=== PATIENT | female | born 1975 | race Caucasian/White ===

== ENCOUNTER → 2016-04-30 | Outpatient (CLI) | payer OTHER | LOC: RAD 17:42 | PROVIDERS: ATTEND Physician Assistant | DX: J45.21 Mild intermittent asthma with (acute) exacerbation (principal) | CPT/HCPCS: 71020 ==

== ENCOUNTER → 2017-09-08 | Outpatient (CLI) | payer OTHER | LOC: WI 08:10 | PROVIDERS: ATTEND Physician Assistant | DX: Z12.31 Encounter for screening mammogram for malignant neoplasm of breast (principal) | CPT/HCPCS: 77063; 77067 ==

== ENCOUNTER → 2018-02-07 | Outpatient (CLI) | payer OTHER ==
--- NOTE | 2018-02-07 09:17 | RADIOLOGY REPORT (SQ) ---
EXAM DESCRIPTION: U/S ABDOMEN COMPLETE W/O DOP COMPLETED DATE/TIME: 02/07/2018 8:13 am REASON FOR STUDY: N/V (R11.2) R11.2 NAUSEA WITH VOMITING, UNSPECIFIED . History of previous gastri c bypass. COMPARISON: CT abdomen and pelvis 06/12/2013. TECHNIQUE: Dynamic and static grayscale images acquired of the abdomen and recorded on PACS. Additio nal selected color Doppler and spectral images recorded. LIMITATIONS: None. FINDINGS: PANCREAS: No masses. Visualized pancreatic duct normal caliber. LIVER: The liver demonstrates increased echogenicity consistent with fatty infiltration. The liver i s prominent in size measuring 20.7 cm. LIVER VASCULATURE: Normal directional flow of the main portal vein and hepatic veins. GALLBLADDER: Surgically absent by history. INTRAHEPATIC DUCTS AND COMMON DUCT: CBD measures 0.7 cm. Intrahepatic ducts normal caliber. No filli ng defects. INFERIOR VENA CAVA: Normal flow. AORTA: No aneurysm. The proximal abdominal aorta measures 1.9 cm in AP diameter and the mid abdomina l aorta measures 2.4 cm in AP diameter. RIGHT KIDNEY: The right kidney measures 10.1 cm in length demonstrating normal echogenicity. Dopple r flow is noticed. No hydronephrosis. LEFT KIDNEY: The left kidney measures 12.8 cm demonstrating normal echogenicity. No hydronephrosis normal Doppler flow. SPLEEN: The spleen is normal measuring 11.5 cm. OTHER: No ascites. In the mid abdomen there is a cystic mass with irregular margins without Doppler flow measuring 5.8 x 5.6 x 3.2 cm. Follow-up with CT abdomen and pelvis with contrast could be uses further evaluation. IMPRESSION: There is a fluid filled structure mid abdomen at the midline. The possibility of findin gs related to previous gastric bypass would be a consideration. Follow-up with CT with intravenous a nd oral contrast could be obtained for further evaluation. COMMENT: The findings were discussed with the sleep lab technologist. TECHNICAL DOCUMENTATION: JOB ID: [id number] SC-[id number] 2010 [employer]- All Rights Reserved Reading location - IP/workstation name: [email or web address]
== END ==
LOC: RAD 07:24
PROVIDERS: ATTEND Internal Medicine Gastroenterology
DX: R11.2 Nausea with vomiting, unspecified (principal)
CPT/HCPCS: 76700

== ENCOUNTER 2018-02-19 20:38 | Emergency (ER) | payer OTHER ==
[2018-02-19 20:53] VITALS: BP 156/89
[2018-02-19] MEDS ORDERED: IPRATROPIUM/ALBUTEROL 0.5-2.5 MG/3 ML AMPUL NEB ONE (22:27)
[2018-02-19] MEDS ORDERED: PREDNISONE 20 MG TABLET PO ONE (22:28)
[2018-02-19] MEDS ORDERED: DOXYCYCLINE HYCLATE 100 MG TABLET PO ONE (22:30)
[2018-02-19] MEDS ORDERED: GUAIFENESIN/CODEINE PHOS 100-10 MG/ 5 ML UDC PO ONE (22:31)
--- NOTE | 2018-02-19 22:35 | ER Document Report ---
ED General - General Chief Complaint: Chest Pain Stated Complaint: FLU LIKE SYMPTOMS Time Seen by Provider: 02/19/18 22:10 Mode of Arrival: Ambulatory Information source: Patient, [facility] Records Notes: 42-year-old female with asthma, fibromyalgia, arthritis presents with complaint of cough that started 1 week prior to arrival. She describes it as constant, productive and associated with chest pain. Patient complaining of shortness of breath despite using her albuterol at home. Patient admits to associated shortness sore throat, fever of 101. Patient has had sick contacts at home with children with similar symptoms. She denies recent hospitalization. She has been taking [id number] cough medicine without relief. TRAVEL OUTSIDE OF THE [place] IN LAST 30 DAYS: No - HPI Onset: Other Onset/Duration: Gradual, Persistent Associated symptoms: Chest pain - With coughing only, Productive cough, Fever, Hoarseness, Shortness of breath, Sore throat Exacerbated by: Coughing Relieved by: Denies Similar symptoms previously: Yes Recently seen / treated by doctor: Yes - Related Data Allergies/Adverse Reactions: Sulfa (Sulfonamide Antibiotics) Allergy (Unknown, Verified 05/30/13 12:22) hydromorphone HCl [From Dilaudid] Allergy (Verified 05/30/13 12:22) Hallucinations Past Medical History - General Information source: Patient, Relative, [facility] Records - Social History Smoking Status: Current Every Day Smoker Cigarette use (# per day): Yes - 10 Smoking Education Provided: Yes - Smoking cessation counseling was provided for 4 minutes at the bedside Frequency of alcohol use: None Drug Abuse: None Lives with: Family Family History: Reviewed & Not Pertinent - Past Medical History Cardiac Medical History: Denies: Hx Coronary Artery Disease, Hx Heart Attack, Hx Hypertension Pulmonary Medical History: Reports: Hx Bronchitis, Hx Pneumonia Denies: Hx Asthma, Hx COPD, Hx Tuberculosis Neurological Medical History: Reports: Hx Seizures - one time 2003, NO CURRENT MEDS. Denies: Hx Cerebrovascular Accident GI Medical History: Reports: Hx Gastroesophageal Reflux Disease Musculoskeletal Medical History: Reports Hx Arthritis, Reports Hx Fibromyalgia, Denies Hx Multiple Sclerosis, Denies Hx Muscular Dystrophy Skin Medical History: Reports Hx MRSA, Reports Hx Psoriasis Psychiatric Medical History: Reports: Hx Anxiety, Hx Bipolar Disorder, Hx Depression, Hx Post Traumatic Stress Disorder Denies: Hx Dementia, Hx Schizophrenia Traumatic Medical History: Denies: Hx Fractures Past Surgical History: Reports: Hx Abdominal Surgery - hernia repair, endoscopy , Hx Appendectomy, Hx Section - 2, Hx Cholecystectomy, Hx Gastric Bypass Surgery, Hx Tonsillectomy, Hx Tubal Ligation. Denies: Hx Bowel Surgery, Hx Coronary Artery Bypass Graft, Hx Herniorrhaphy, Hx Hysterectomy, Hx Mastectomy, Hx Pacemaker - Immunizations Immunizations up to date: No Hx Diphtheria, Pertussis, Tetanus Vaccination: Yes Review of Systems - Review of Systems Constitutional: Fever, Malaise EENT: Nose congestion, Nose discharge, Throat pain. denies: Eye discharge Cardiovascular: Chest pain - With coughing only Respiratory: Cough, Short of breath, Wheezing Gastrointestinal: denies: Abdominal pain, Nausea, Vomiting Genitourinary: denies: Dysuria, Flank pain Female Genitourinary: No symptoms reported Musculoskeletal: Muscle pain. denies: Back pain Hematologic/Lymphatic: Swollen glands Neurological/Psychological: denies: Headaches -: Yes All other systems reviewed and negative Physical Exam - Vital signs Vitals: Temp Pulse Resp BP Pulse Ox 98.9 F 88 20 156/89 H 94 02/19/18 20:51 02/19/18 20:51 02/19/18 20:51 02/19/18 20:51 02/19/18 20:51 Interpretation: Hypertensive. No: Febrile - Notes Notes: PHYSICAL EXAMINATION: GENERAL: Well-appearing, well-nourished and in no acute distress. HEAD: Atraumatic, normocephalic. EYES: Pupils equal round and reactive to light, extraocular movements intact, conjunctiva are normal. ENT: Nares patent, oropharynx clear without exudates. Moist mucous membranes. NECK: Normal range of motion, supple without lymphadenopathy LUNGS: Coarse breath sounds bilaterally with diffuse wheezing in all lung garcia. No accessory muscle use. No increased work of breathing. HEART: Regular rate and rhythm without murmurs ABDOMEN: Soft, nontender, nondistended abdomen. No guarding, no rebound. No masses appreciated. Female : deferred Musculoskeletal: Normal range of motion, no pitting or edema. No cyanosis. NEUROLOGICAL: Cranial nerves grossly intact. Normal speech, normal gait. Normal sensory, motor exams PSYCH: Normal mood, normal affect. SKIN: Warm, Dry, normal turgor, no rashes or lesions noted. Course - Re-evaluation Re-evalutation: 02/20/18 01:03 EDT Patient presents with a clinical history and exam most consistent with an acute viral bronchitis. Patient is overall well in appearance without tachypnea, hypoxemia, tachycardia, or difficulty with ambulation. Patient has diffuse wheezing, coarse breath sounds. No fever here but states she has had fevers at home. Patient does have additional signs of upper respiratory infection including nasal congestion, sore throat, and sinus pressure. No indication for labs. Checks x-ray shows no evidence of pneumonia. Will treat with bronchodilators, single dose of dexamethasone, and Robitussin-AC and doxycycline. With patient's long-term smoking history I have decided to add an antibiotic to her regimen as well as prednisone. At this time will discharge with return precautions and follow-up recommendations. Verbal discharge instructions given a the bedside and opportunity for questions given. Medication warnings reviewed. Patient is in agreement with this plan and has verbalized understanding of return precautions and the need for primary care follow-up in the next 24-72 hours. - Vital Signs Vital signs: Temp Pulse Resp BP Pulse Ox 98.9 F 88 20 156/89 H 94 02/19/18 20:51 02/19/18 20:51 02/19/18 20:51 02/19/18 20:51 02/19/18 20:51 - Diagnostic Test Radiology reviewed: Image reviewed, Reports reviewed - EKG Interpretation by Me EKG shows normal: Sinus rhythm Rate: Normal Rhythm: NSR - QTC 488 Discharge - Discharge Clinical Impression: Bronchitis, Wheezing Asthma exacerbation Qualifiers: Asthma severity: mild Asthma persistence: intermittent Qualified Code(s): J45.21 - Mild intermittent asthma with (acute) exacerbation Pharyngitis Qualifiers: Pharyngitis/tonsillitis etiology: other specified organisms Qualified Code(s): J02.8 - Acute pharyngitis due to other specified organisms Hypertension Qualifiers: Hypertension type: unspecified Qualified Code(s): I10 - Essential (primary) hypertension Condition: Good Disposition: HOME, SELF-CARE Instructions: Bronchitis With Bronchospasm (Wheezing) ([facility]), Chest Wall Pain ( [facility]), Fever ([facility]), Sore Throat ([facility]) Additional Instructions: You were seen for symptoms most consistent with bronchitis. This can take up to 12 weeks to fully resolve. This is generally due to a viral infection. Please follow-up with your primary doctor in the next 2-3 days. Return if you develop worsening cough, vomiting, fever >100.4, pass out, begin coughing blood, or have any other symptoms that are concerning to you. Please use the medications prescribed today as directed. Follow up with your [id number] hours for further care or return to the ED IMMEDIATELY if symptoms worsen or you have any concerns. If you cannot afford to follow up with your primary care physician a list of low cost clinics have been provided at the end of your discharge papers as well. Most prescribed medications have multiple side effects. The safest thing to do is when filling your prescription speak to your pharmacist regarding possible interactions with your normal home medications and over the counter medications such as Ibuprofen, Tylenol, Benadryl. If you experience any symptoms that cause you discomfort or concern you should discontinue the medication immediately and return to the emergency room or call your primary care physician. Prescriptions: Guaifenesin/Codeine Phos [Robitussin-AC Syrup 59 ml] 10 ml PO QHS PRN #50 ml PRN Reason: Cough Doxycycline Hyclate 100 mg PO BID #14 capsule Prednisone [Deltasone 20 mg Tablet] 3 tab PO DAILY 5 Days #15 tablet Forms: Elevated Blood Pressure, Smoking Cessation Education, Return to Work Referrals: DAPHNIE SUNG MD [ACTIVE STAFF] - Follow up as needed
[2018-02-19 23:10] LABS: A TYPE INFLUENZA AG NEGATIVE (NEGATIVE); B INFLUENZA AG NEGATIVE (NEGATIVE)
--- NOTE | 2018-02-19 23:26 | RADIOLOGY REPORT (SQ) ---
EXAM DESCRIPTION: XR CHEST 2 VIEWS COMPLETED DATE/TME: 02/19/2018 22:28 CLINICAL HISTORY: 42 years, Female, sob cough Compared to 04/30/2016. Heart is borderline enlarged. Left chest port is in place. Mild bibasilar atelectatic changes. No pneumothorax. No pleural effusions. IMPRESSION: No acute disease.
--- NOTE | 2018-02-22 07:35 | EKG REPORT ---
SEVERITY:- BORDERLINE ECG - SINUS RHYTHM BORDERLINE PROLONGED QT INTERVAL : Confirmed by: Brody Christianson MD 22-Feb-2018 07:34:05
== END 2018-02-19 23:36 | disposition home or self-care (01) ==
LOC: ER 20:38
DX: J45.901 Unspecified asthma with (acute) exacerbation (principal); J02.9 Acute pharyngitis, unspecified; I10 Essential (primary) hypertension; R05 Cough; R06.02 Shortness of breath; R50.9 Fever, unspecified; R07.89 Other chest pain; R49.0 Dysphonia; R53.81 Other malaise; R59.1 Generalized enlarged lymph nodes; R09.81 Nasal congestion; F17.210 Nicotine dependence, cigarettes, uncomplicated; Z88.5 Allergy status to narcotic agent; Z88.2 Allergy status to sulfonamides; Z71.6 Tobacco abuse counseling; Z87.01 Personal history of pneumonia (recurrent)
CPT/HCPCS: 93005; 99406; 94640; 99284; 87804; 71046; 93010; J7512; J7620

== ENCOUNTER → 2018-02-21 | Outpatient (CLI) | payer OTHER ==
--- NOTE | 2018-02-21 15:10 | RADIOLOGY REPORT (SQ) ---
EXAM DESCRIPTION: CT ABD/PELVIS WITH IV ORAL COMPLETED DATE/TIME: 02/21/2018 10:24 am REASON FOR STUDY: ABNORMAL FINDINGS ON DIAGNOSTIC IMAGING R93.3 ABNORMAL FINDINGS ON DX IMAGING OF PRT DIGESTIVE TRACT R10.9 UNSPECIFIED ABDOMINAL PAIN R11.2 NAUSEA WITH VOMITING, UNSPECIFIED COMPARISON: 05/30/2013 TECHNIQUE: CT scan of the abdomen and pelvis performed using helical scanning technique with dynamic intravenous contrast injection. No oral contrast. Images reviewed with lung, soft tissue, and bone windows. Reconstructed coronal and sagittal MPR images reviewed. Delayed images for evaluation of the urinary system also acquired. All images stored on PACS. All CT scanners at this facility use dose modulation, iterative reconstruction, and/or weight based d osing when appropriate to reduce radiation dose to as low as reasonably achievable (ALARA). [facility]: Dose Right [facility]: CareDose [facility]: Dose Right [facility]: Teradose 4D [facility]: One On One CONTRAST TYPE AND DOSE: contrast/concentration: Isovue 350.00 mg/ml; Total Contrast Delivered: 100.0 ml; Total Saline Delivered: 72.0 ml RENAL FUNCTION: Creatinine 0.6 RADIATION DOSE: CT Rad equipment meets quality standard of care and radiation dose reduction techniq ues were employed. CTDIvol: 26.2 - 29.8 mGy. DLP: 3288 mGy-cm.. LIMITATIONS: None. FINDINGS: LOWER CHEST: No significant findings. No nodules or infiltrates. LIVER: There is decreased attenuation throughout the liver consistent with fatty infiltration. There is hepatomegaly. Liver measures 26 cm in cranial caudal dimensions. No focal masses. SPLEEN: Normal size. No focal lesions. PANCREAS: No masses. No significant calcifications. No adjacent inflammation or peripancreatic fluid collections. Pancreatic duct not dilated. GALLBLADDER: Surgically absent. ADRENAL GLANDS: No significant masses or asymmetry. RIGHT KIDNEY AND URETER: No solid masses. No significant calcifications. No hydronephrosis or hyd roureter. LEFT KIDNEY AND URETER: No solid masses. No significant calcifications. No hydronephrosis or hydr oureter. AORTA AND VESSELS: No aneurysm. No dissection. Renal arteries, SMA, celiac without stenosis. RETROPERITONEUM: No retroperitoneal adenopathy, hemorrhage or masses. BOWEL AND PERITONEAL CAVITY: There are postsurgical changes in the stomach consistent with prior ida michael bypass. No focal masses. Similar findings were present in May 2013. APPENDIX: Surgically absent. PELVIS: No mass. No free fluid. Normal bladder. ABDOMINAL WALL: Prior hernia repair. Small right paramidline herniation is now noted containing omen raghu fat only. BONES: No significant or acute findings. OTHER: No other significant finding. IMPRESSION: Postsurgical changes in the stomach consistent with prior gastric bypass. No focal mass . Findings on ultrasound or probably related to the gastric pouch. There are no acute findings in t he abdomen or pelvis. TECHNICAL DOCUMENTATION: JOB ID: [id number] Quality ID # [id number]: Final reports with documentation of one or more dose reduction techniques (e.g., Au tomated exposure control, adjustment of the mA and/or kV according to patient size, use of iterative reconstruction technique) 2010 [employer]- All Rights Reserved Reading location - IP/workstation name: [email or web address]
== END ==
LOC: RAD 09:48
PROVIDERS: ATTEND Internal Medicine Gastroenterology
DX: R10.9 Unspecified abdominal pain (principal); R93.3 Abnormal findings on diagnostic imaging of other parts of digestive tract; R11.2 Nausea with vomiting, unspecified; Z98.84 Bariatric surgery status
CPT/HCPCS: 74177; 82565

== ENCOUNTER 2018-04-12 11:12 | Inpatient (IN) | payer OTHER ==
--- NOTE | 2018-04-12 11:35 | ER Document Report ---
ED General - General Mode of Arrival: Ambulatory Information source: Patient TRAVEL OUTSIDE OF THE [place]. IN LAST 30 DAYS: No <DANIEL BETANCOURT - Last Filed: 04/12/18 12:01> <JAYESH LUCIO - Last Filed: 04/12/18 15:21> - General Chief Complaint: Shortness Of Breath Stated Complaint: SHORT OF BREATH Time Seen by Provider: 04/12/18 11:28 Notes: Patient is a 42 year old female with rheumatoid arthritis presents to the emergency department complaining of shortness of breath. Patient was seen here 8 weeks ago for a sore throat, bronchitis and wheezing and placed on a tapered course of Prednisone (20mg 3 tabs 5 Days #15 table) and given Doxycycline and Robitussin. Patient followed up with her PCP and was told she was not placed on a proper dose and lowered her dosing of Prednisone. Patient states her symptoms have not improved since then and worsened last night. She states she followed up with her PCP twice and on her last visit was prescribed Cefdinir. She states she has been using an albuterol inhaler every 4 hours and 5-10mg of Prednisone, prescribed by her senior editor, with no relief. Patient also complains of a productive cough with yellowish green sputum. (DANIEL BETANCOURT) - Related Data Allergies/Adverse Reactions: Sulfa (Sulfonamide Antibiotics) Allergy (Unknown, Verified 04/12/18 11:14) hydromorphone HCl [From Dilaudid] Allergy (Verified 04/12/18 11:14) Hallucinations Past Medical History - General Information source: Patient - Social History Smoking Status: Current Every Day Smoker Cigarette use (# per day): Yes - 1 PPD Frequency of alcohol use: Rare Family History: Reviewed & Not Pertinent Pulmonary Medical History: Reports: Hx Bronchitis, Hx Pneumonia Neurological Medical History: Reports: Hx Seizures - one time 2003, NO CURRENT MEDS GI Medical History: Reports: Hx Gastroesophageal Reflux Disease Musculoskeletal Medical History: Reports Hx Arthritis, Reports Hx Fibromyalgia Skin Medical History: Reports Hx MRSA, Reports Hx Psoriasis Psychiatric Medical History: Reports: Hx Anxiety, Hx Bipolar Disorder, Hx Depression, Hx Post Traumatic Stress Disorder Past Surgical History: Reports: Hx Abdominal Surgery - hernia repair, endoscopy, Hx Appendectomy, Hx Section - 2, Hx Cholecystectomy, Hx Gastric Bypass Surgery, Hx Tonsillectomy, Hx Tubal Ligation - Immunizations Immunizations up to date: No Hx Diphtheria, Pertussis, Tetanus Vaccination: Yes <ASIA,TAMMIGNON - Last Filed: 04/12/18 12:01> Review of Systems - Review of Systems Constitutional: No symptoms reported EENT: No symptoms reported Cardiovascular: No symptoms reported Respiratory: See HPI, Cough, Short of breath Gastrointestinal: No symptoms reported Genitourinary: No symptoms reported Female Genitourinary: No symptoms reported Musculoskeletal: No symptoms reported Skin: No symptoms reported Hematologic/Lymphatic: No symptoms reported Neurological/Psychological: No symptoms reported -: Yes All other systems reviewed and negative <ASIADANIEL - Last Filed: 04/12/18 12:01> Physical Exam <DANIEL BETANCOURT - Last Filed: 04/12/18 12:01> - Vital signs Vitals: Temp Pulse Resp BP Pulse Ox 99.2 F 112 H 22 H 164/87 H 96 04/12/18 11:19 04/12/18 11:19 04/12/18 11:19 04/12/18 11:19 04/12/18 11:19 - Notes Notes: GENERAL: Alert, interacts well. No acute distress. HEAD: Normocephalic, atraumatic. EYES: Pupils equal, round, and reactive to light. Extraocular movements intact. ENT: Oral mucosa moist, tongue midline. NECK: Full range of motion. Supple. Trachea midline. LUNGS: Wheezes and rhonchi. Patient was breathing heavily and speaking in multi word sentences. No respiratory distress. HEART: Regular rate and rhythm. No murmurs, gallops, or rubs. ABDOMEN: Soft, morbidly obese, non-tender. Non-distended. Bowel sounds present in all 4 quadrants. EXTREMITIES: Moves all 4 extremities spontaneously. NEUROLOGICAL: Alert and oriented x3. Normal speech. PSYCH: Normal affect, normal mood. SKIN: Warm, dry, normal turgor. No rashes or lesions noted. (DANIEL BETANCOURT) Course - Laboratory Result Diagrams: 04/12/18 11:47 04/12/18 11:47 <ASIATRISTINMIGNON - Last Filed: 04/12/18 12:01> - Laboratory Result Diagrams: 04/12/18 11:47 04/12/18 13:36 - Diagnostic Test Radiology reviewed: Image reviewed - Portable chest x-ray in this morbidly obese patient does not show any acute infiltrates. - Consults John Jo NP Time consulted: 15:15 Consulted provider: will come to ER <JAYESH LUICO - Last Filed: 04/12/18 15:21> - Re-evaluation Re-evalutation: 04/12/18 14:56 After the first 2 breathing treatments, the patient is still a little tachypneic with pulse ox 95% on room air. She continues with diffuse wheezes and rhonchi most pronounced when she has her coughing spells. (JAYESH LUCIO) - Vital Signs Vital signs: Temp Pulse Resp BP Pulse Ox 98.6 F 112 H 20 138/87 H 92 04/12/18 15:16 04/12/18 11:19 04/12/18 15:01 04/12/18 15:01 04/12/18 15:01 - Laboratory Laboratory results interpreted by me: 04/12/18 04/12/18 11:47 13:36 WBC 18.2 H RDW 16.0 H Absolute Neutrophils 13.8 H BUN 21 H Glucose 111 H AST 41 H Creatine Kinase 493 H Discharge <DANIEL BETANCOURT - Last Filed: 04/12/18 12:01> - Discharge Admitting Provider: Hospitalist Unit Admitted: Medical Floor <JAYESH LUCIO - Last Filed: 04/12/18 15:21> - Discharge Clinical Impression: COPD with acute exacerbation, Chronic use of steroids Leukocytosis Qualifiers: Leukocytosis type: unspecified Qualified Code(s): D72.829 - Elevated white blood cell count, unspecified Condition: Stable Disposition: ADMITTED INPATIENT Referrals: LAURA BRAN PA-C [Primary Care Provider] - Follow up as needed Scribe Attestation: 04/12/18 15:21 I personally performed the services described in the documentation, reviewed and edited the documentation which was dictated to the scribe in my presence, and it accurately records my words and actions. (JAYESH LUCIO) Scribe Documentation - Scribe Written by Scribe:: Mejia Gonzalez, 04/12/2018 11:43 acting as scribe for :: Andres <DANIEL BETANCOURT - Last Filed: 04/12/18 12:01>
[2018-04-12] MEDS ORDERED: LIDOCAINE 1% INJ-PF (10 MG/ML) 30 ML SDV NEB ONE (11:36)
[2018-04-12] MEDS ORDERED: METHYLPREDNISOLONE INJ 125 MG/2 ML SDV IV ONE (11:36)
[2018-04-12] MEDS ORDERED: IPRATROPIUM/ALBUTEROL 0.5-2.5 MG/3 ML AMPUL NEB ONE (11:36)
[2018-04-12] MEDS ORDERED: KETOROLAC TROMETHAMINE INJ/PF 30 MG/1 ML SDV IV ONE (12:18)
[2018-04-12 12:25] LABS: ABSOLUTE BASOPHILS # (AUTO) 0.1 10^3/uL (0.0-0.2); ABSOLUTE EOSINOPHILS # (AUTO) 0.3 10^3/uL (0.0-0.6); ABSOLUTE LYMPHOCYTES (AUTO) 2.9 10^3/uL (0.5-4.7); ABSOLUTE MONOCYTES (AUTO) 1.1 10^3/uL (0.1-1.4); ABSOLUTE NEUT (AUTO) 13.8 10^3/uL (1.7-8.2); BASOPHILS % (AUTO) 0.6 % (0-2); EOSINOPHILS % (AUTO) 1.9 % (0-6); HEMATOCRIT 40.4 % (36.0-47.0); LYMPHOCYTES % (AUTO) 15.9 % (13-45); MEAN CORPUSCULAR HEMOGLOBIN 29.2 pg (27.0-33.4); MEAN CORPUSCULAR HGB CONC 32.3 g/dL (32.0-36.0); MEAN CORPUSCULAR VOLUME 91 fl (80-97); MONOCYTES % (AUTO) 6.1 % (3-13); PLATELET COUNT 324 10^3/uL (150-450); RED BLOOD COUNT 4.46 10^6/uL (3.72-5.28); SEGMENTED NEUTROPHILS % (AUTO) 75.5 % (42-78); TOTAL CELLS COUNTED % (AUTO) 100 %; WHITE BLOOD COUNT 18.2 10^3/uL (4.0-10.5)
--- NOTE | 2018-04-12 12:33 | RADIOLOGY REPORT (SQ) ---
EXAM DESCRIPTION: CHEST SINGLE VIEW COMPLETED DATE/TIME: 04/12/2018 12:22 pm REASON FOR STUDY: wheezing, SOB COMPARISON: 02/19/2018 EXAM PARAMETERS: NUMBER OF VIEWS: One view. TECHNIQUE: Single frontal radiographic view of the chest acquired. RADIATION DOSE: NA LIMITATIONS: None. FINDINGS: LUNGS AND PLEURA: No opacities, masses or pneumothorax. No pleural effusion. MEDIASTINUM AND HILAR STRUCTURES: No masses. Contour normal. HEART AND VASCULAR STRUCTURES: Heart normal in size. Normal vasculature. BONES: No acute findings. HARDWARE: Venous access catheter unchanged. OTHER: No other significant finding. IMPRESSION: NO ACUTE RADIOGRAPHIC FINDING IN THE CHEST. TECHNICAL DOCUMENTATION: JOB ID: [id number] [employer]- All Rights Reserved Reading location - IP/workstation name: [email or web address]
[2018-04-12] MEDS ORDERED: ALBUTEROL SULFATE 0.083% NEB 2.5 MG/3 ML AMPUL NEB ONE (12:42)
[2018-04-12 14:06] LABS: ALANINE AMINOTRANSFERASE 47 U/L (9-52); ALBUMIN 3.7 g/dL (3.5-5.0); ALKALINE PHOSPHATASE 49 U/L (38-126); ANION GAP 8 (5-19); ASPARTATE AMINO TRANSFERASE 41 U/L (14-36); BILIRUBIN,DIRECT 0.3 mg/dL (0.0-0.4); BILIRUBIN,TOTAL 0.5 mg/dL (0.2-1.3); BLOOD UREA NITROGEN 21 mg/dL (7-20); CARBON DIOXIDE 23 mmol/L (22-30); CHLORIDE 107 mmol/L (98-107); CREATINE KINASE 493 U/L (30-135); GLUCOSE 111 mg/dL (75-110); POTASSIUM 4.8 mmol/L (3.6-5.0); SODIUM 138.2 mmol/L (137-145); TOTAL PROTEIN 6.5 g/dL (6.3-8.2)
[2018-04-12] MEDS ORDERED: MORPHINE SULFATE 10 MG/ML INJ IV ONE (15:19)
[2018-04-12] MEDS ORDERED: ONDANSETRON HCL INJ/PF 4 MG/2 ML SDV IV ONE (15:20)
[2018-04-12 18:08] LABS: ARTERIAL BLOOD BASE EXCESS -0.5 mmol/L; ARTERIAL BLOOD H2CO3 1.53 mmol/L (1.05-1.35); ARTERIAL BLOOD HCO3 26.1 mmol/L (20-24); ARTERIAL BLOOD O2 SATURATION 95.3 % (94-98); ARTERIAL BLOOD PCO2 50.7 mmHg (35-45); ARTERIAL BLOOD PH 7.33 (7.35-7.45); ARTERIAL BLOOD PO2 82.2 mmHg (80-100); ARTERIAL BLOOD TOTAL CO2 27.6 mmol/L (21-25)
[2018-04-12 18:14] LABS: ARTERIAL BLOOD FIO2 ROOM AIR
--- NOTE | 2018-04-12 19:36 | PDOC H&P ---
History of Present Illness Admission Date/PCP: 04/12/18 15:46 LAURA BRAN PA-C Patient complains of: SOB, cough History of Present Illness: July DIONICIO is a 42 year old female with past medical hx of bipolar, anxiety, fibromyalgia, current smoker (21ppd hx), fatty liver disease, idiopathic angioedema, psoriatic arthritis, and dx of asthma in 2018 by pulmono logist. She reports on going cough, sputum production, and sob x 1-2 months. she ahs recieved doxy and omnicef during that time, as well as several courses of steroids. She reports subjective fever. She denies getting the flu shot this year. She also denies past dx of COPD. She has been administering nebulizers tx to herself at home over the past month as well/ She reportedly follows with pulmonology, rheum, and PCP as instructed. She has no new symptoms during my evaluation, but is focused on getting home meds and seems anxious. Past Medical History Cardiac Medical History: Denies: Coronary Artery Disease, Myocardial Infarction, Hypertension Pulmonary Medical History: Reports: Asthma, Bronchitis, Pneumonia Denies: Chronic Obstructive Pulmonary Disease (COPD), Tuberculosis Neurological Medical History: Reports: Seizures - one time 2003, NO CURRENT MEDS GI Medical History: Reports: Gastroesophageal Reflux Disease Musculoskeltal Medical History: Reports: Arthritis, Fibromyalgia Skin Medical History: Reports: Psoriasis Psychiatric Medical History: Reports: Bipolar Disorder, Depression, Post Traumatic Stress Disorder Denies: Dementia Hematology: Denies: Anemia Past Surgical History Past Surgical History: Reports: Appendectomy, Section - 2, Cholecystectomy, Gastric Bypass Surgery, Tonsillectomy, Tubal Ligation Denies: Amputation, Coronary Artery Bypass Graft, Herniorrhaphy, Hysterectomy, Mastectomy, Pacemaker Social History Smoking Status: Current Every Day Smoker Cigarettes Packs Per Day: 1 Number of Years Smokin Last Time Smoked: 04/12/2018 Frequency of Alcohol Use: Rare Hx Recreational Drug Use: No Drugs: None Hx Prescription Drug Abuse: No - Advance Directive Resuscitation Status: Full Code Family History Family History: Mom- 62. ARDS. HTN. CVA. DM. Leaky valve. Bipolar Dad- alive. PTSD. Parental Family History Reviewed: Yes Children Family History Reviewed: Yes Sibling(s) Family History Reviewed.: Yes Medication/Allergy Home Medications: Diazepam 10 mg PO BIDP PRN 02/19/11 Folic Acid 1 mg PO DAILY 02/19/11 Furosemide [Lasix 40 mg Tablet] 40 mg PO QAM PRN 02/19/11 Hydroxyzine HCl [Atarax 25 mg Tablet] 25 mg PO DAILYP PRN 02/19/11 Potassium Chloride [Klor-Con 10 Meq Tablet.sa] 20 meq PO DAILY 02/19/11 Tizanidine HCl [Zanaflex 4 Mg Tablet] 2 mg PO TIDP PRN 02/19/11 Cetirizine HCl [Zyrtec 10 mg Tablet] 10 mg PO DAILY 05/30/13 Sucralfate [Carafate 1 gm Tablet] 1 gm PO DAILYP PRN 05/30/13 Amitriptyline HCl [Elavil 25 mg Tablet] 25 mg PO DAILY 04/12/18 Cyanocobalamin (Vitamin B-12) [Vitamin B-12 Inj 1000 Mcg/1 ml Vial] 1,000 mcg IM .MONTHLY 04/12/18 Duloxetine HCl [Cymbalta] 30 mg PO DAILY 04/12/18 Duloxetine HCl [Cymbalta] 60 mg PO BID 04/12/18 Ergocalciferol (Vitamin D2) [Drisdol] 50,000 unit PO TU@10 04/12/18 Fluticasone/Salmeterol [Advair 500-50 Diskus 14 Dose/Diskus] 1 inh IH Q12H 04/12/18 Lansoprazole [Prevacid] 30 mg PO DAILY 04/12/18 [place] Carbonate [[place] Carbonate ER 450 mg Tablet] 450 mg PO Q12 04/12/18 Methotrexate Sodium/Pf [Methotrexate 25 mg/ml Vial] 0.6 ml IJ MO@22 04/12/18 Montelukast Sodium [Singulair 10 mg Tablet] 10 mg PO QHS 04/12/18 Prednisone [Deltasone 5 mg Tablet] 5 mg PO DAILYP PRN 04/12/18 Propranolol HCl [Inderal 10 mg Tablet] 10 mg PO Q12 04/12/18 Quetiapine Fumarate 300 mg PO DAILY 04/12/18 Tiotropium [place] [Spiriva Handihaler 5 Cap/Kit (18 Mcg/Cap)] 1 cap IH DAILY 04/12/18 Allergies/Adverse Reactions: Sulfa (Sulfonamide Antibiotics) Allergy (Unknown, Verified 04/12/18 11:14) hydromorphone HCl [From Dilaudid] Allergy (Verified 04/12/18 11:14) Hallucinations Review of Systems Constitutional: PRESENT: chills, fever(s) Cardiovascular: ABSENT: chest pain, dyspnea on exertion, edema, orthropnea, palpitations Respiratory: PRESENT: cough, sputum Gastrointestinal: PRESENT: nausea, vomiting Musculoskeletal: ABSENT: joint swelling Neurological: ABSENT: abnormal gait, abnormal speech, confusion, dizziness, focal weakness, syncope Psychiatric: PRESENT: anxiety, depression Endocrine: ABSENT: cold intolerance, heat intolerance, polydipsia, polyuria Hematologic/Lymphatic: ABSENT: easy bleeding, easy bruising Physical Exam Vital Signs: Temp Pulse Resp BP Pulse Ox 98.0 F 99 20 149/71 H 95 04/12/18 17:15 04/12/18 17:15 04/12/18 17:15 04/12/18 17:15 04/12/18 17:58 Pulse Oximeter Continuous Start: 04/12/18 17:14 Freq: RTQ4 Status: Active Protocol: Document 04/12/18 17:57 LDA (Rec: 04/12/18 17:57 LDA [id number]) Pulse Oximetry Assessment Oxygen Saturation (92-100) 95 Oxygen Flow Rate (L/min) 2 Oxygen Delivery Method Nasal Cannula Fraction of Inspired Oxygen (FIO2) 28 Equipment Usage Initial Set Up Continuous Pulse Oximeter 24 Hour Charge Charge Now Continuous SpO2 Machine # [id number] Intake & Output 04/11/18 04/12/18 04/13/18 06:59 06:59 06:59 Intake Total 222 Balance 222 Weight 140.614 kg General appearance: PRESENT: no acute distress, morbidly obese Head exam: PRESENT: atraumatic Ear exam: PRESENT: normal external ear exam Mouth exam: PRESENT: moist, tongue midline Respiratory exam: PRESENT: decreased breath sounds - no wheeze Cardiovascular exam: PRESENT: RRR, +S1, +S2 GI/Abdominal exam: PRESENT: soft Rectal exam: PRESENT: deferred Extremities exam: PRESENT: +1 edema - BLLE Neurological exam: PRESENT: alert, awake, oriented to person, oriented to place, oriented to time, oriented to situation, CN II-XII grossly intact. ABSENT: motor sensory deficit Psychiatric exam: PRESENT: anxious, depressed Results Laboratory Results: 04/12/18 11:47 04/12/18 13:36 04/12/18 04/12/18 04/12/18 11:47 11:47 12:53 WBC 18.2 H RBC 4.46 Hgb 13.0 Hct 40.4 MCV 91 MCH 29.2 MCHC 32.3 RDW 16.0 H Plt Count 324 Seg Neutrophils % 75.5 Lymphocytes % 15.9 Monocytes % 6.1 Eosinophils % 1.9 Basophils % 0.6 Absolute Neutrophils 13.8 H Absolute Lymphocytes 2.9 Absolute Monocytes 1.1 Absolute Eosinophils 0.3 Absolute Basophils 0.1 Carbonic Acid HCO3/H2CO3 Ratio ABG pH ABG pCO2 ABG pO2 ABG HCO3 ABG O2 Saturation ABG Base Excess FiO2 Sodium Cancelled Cancelled Potassium Cancelled Cancelled Chloride Cancelled Cancelled Carbon Dioxide Cancelled Cancelled Anion Gap Cancelled Cancelled BUN Cancelled Cancelled Creatinine Cancelled Cancelled Est GFR ( Amer) Cancelled Cancelled Est GFR (Non-Af Amer) Cancelled Cancelled Glucose Cancelled Cancelled Calcium Cancelled Cancelled Total Bilirubin Cancelled Cancelled AST Cancelled Cancelled ALT Cancelled Cancelled Alkaline Phosphatase Cancelled Cancelled Total Protein Cancelled Cancelled Albumin Cancelled Cancelled 04/12/18 04/12/18 13:36 18:00 WBC RBC Hgb Hct MCV MCH MCHC RDW Plt Count Seg Neutrophils % Lymphocytes % Monocytes % Eosinophils % Basophils % Absolute Neutrophils Absolute Lymphocytes Absolute Monocytes Absolute Eosinophils Absolute Basophils Carbonic Acid 1.53 H HCO3/H2CO3 Ratio 17:1 ABG pH 7.33 L ABG pCO2 50.7 H ABG pO2 82.2 ABG HCO3 26.1 H ABG O2 Saturation 95.3 ABG Base Excess -0.5 FiO2 ROOM AIR Sodium 138.2 Potassium 4.8 Chloride 107 Carbon Dioxide 23 Anion Gap 8 BUN 21 H Creatinine 0.52 Est GFR ( Amer) > 60 Est GFR (Non-Af Amer) > 60 Glucose 111 H Calcium 9.0 Total Bilirubin 0.5 AST 41 H ALT 47 Alkaline Phosphatase 49 Total Protein 6.5 Albumin 3.7 04/12/18 04/12/18 04/12/18 11:47 11:47 12:53 Creatine Kinase Cancelled Cancelled Troponin I < 0.012 04/12/18 13:36 Creatine Kinase 493 H Troponin I Impressions: Chest X-Ray 04/12/18 11:35 IMPRESSION: NO ACUTE RADIOGRAPHIC FINDING IN THE CHEST. Assessment & Plan - Diagnosis (1) Psoriatic arthritis Is this a current diagnosis for this admission?: Yes (2) Cough Is this a current diagnosis for this admission?: Yes (3) Asthma Is this a current diagnosis for this admission?: Yes (4) Bipolar disorder, unspecified Is this a current diagnosis for this admission?: Yes - Time Critical Time spent with patient: 35 or more minutes Smoking Cessation Education: over 10 minutes Medications reviewed and adjusted accordingly: Yes - Inpatient Certification Based on my medical assessment, after consideration of the patient's comorbidities, presenting symptoms, or acuity I expect that the services needed warrant INPATIENT care.: Yes I certify that my determination is in accordance with my understanding of Medicare's requirements for reasonable and necessary INPATIENT services [42 CFR 412.3e].: Yes - Plan Summary Plan Summary: SOB/Cough -elevated wbc. no objective fever. no wheeze. plans to observe. -recheck cxr and wbc tomm for changes -hold steroids and abx for now -could have an anxiety/psych component -supplemental care for now -PNA seems unlikely if she did take and complete omnicef and doxy in the past month Psoriatic arthritis -remicade infusions o/p -follows with rheum COPD -possible. needs o/p PFTs - no current wheeze. smoking cessation encouraged borderline prolonged qti 02/2018 -recheck ekg 04/13 -can lengthen with stress bipolar -continue qhs seroquel and lithium -check lithium level -lower tid valium due to respiratory complaints -continue prn vistaril dvt prophylaxis: teds, lovenox
[2018-04-12] MEDS: HYDROXYZINE PAMOATE 25 MG CAPSULE PO PRN (19:46)
[2018-04-12 20:09] LABS: APPEARANCE,URINE CLOUDY; BILIRUBIN,URINE NEGATIVE (NEGATIVE); COLOR,URINE YELLOW; GLUCOSE, URINE NEGATIVE (NEGATIVE); KETONES,URINE NEGATIVE (NEGATIVE); LEUKOCYTE ESTERASE,URINE NEGATIVE (NEGATIVE); NITRITE,URINE NEGATIVE (NEGATIVE); PROTEIN,URINE NEGATIVE (NEGATIVE); URINE SPECIFIC GRAVITY 1.016; UROBILINOGEN,URINE NEGATIVE mg/dL (<2.0)
[2018-04-12] MEDS: ACETAMINOPHEN 325 MG TABLET PO PRN (20:24)
[2018-04-12] MEDS ORDERED: MORPHINE SULFATE 10 MG/ML INJ IV PRN ×2 (21:10)
[2018-04-12] MEDS: MONTELUKAST SODIUM 10 MG TABLET PO SCH (21:41)
[2018-04-12] MEDS: DIAZEPAM 5 MG TABLET PO PRN (21:41)
[2018-04-12] MEDS: MORPHINE SULFATE 10 MG/ML INJ IV PRN (21:42)
[2018-04-12] MEDS ORDERED: PROPRANOLOL HCL 10 MG TABLET ONE (22:03)
[2018-04-12] MEDS: LITHIUM CARBONATE 450 MG TABLET.ER PO SCH (22:11)
[2018-04-12] MEDS: PROPRANOLOL HCL 10 MG TABLET PO SCH (22:13)
[2018-04-12] MEDS: LEVALBUTEROL HCL NEB 1.25 MG/3 ML AMPUL NEB SCH (23:43)
[2018-04-12] MEDS: IPRATROPIUM BROMIDE 0.02% NEB 0.5 MG/2.5 ML AMPUL NEB SCH (23:43)
--- NOTE | 2018-04-13 | EKG REPORT ---
SEVERITY:- BORDERLINE ECG - SINUS RHYTHM LOW VOLTAGE THROUGHOUT : Confirmed by: Shubham Cordoba 12-Apr-2018 23:59:02
[2018-04-13] MEDS: MORPHINE SULFATE 10 MG/ML INJ IV PRN ×2 (03:44→08:02)
[2018-04-13 05:38] LABS: ABSOLUTE LYMPHOCYTES (AUTO) 1.9 10^3/uL (0.5-4.7); ABSOLUTE NEUT (AUTO) 10.1 10^3/uL (1.7-8.2); BASOPHILS % (AUTO) 0.3 % (0-2); EOSINOPHILS % (AUTO) 0.2 % (0-6); HEMATOCRIT 35.6 % (36.0-47.0); HEMOGLOBIN 11.5 g/dL (12.0-15.5); LYMPHOCYTES % (AUTO) 14.8 % (13-45); MEAN CORPUSCULAR HEMOGLOBIN 29.3 pg (27.0-33.4); MEAN CORPUSCULAR HGB CONC 32.3 g/dL (32.0-36.0); MEAN CORPUSCULAR VOLUME 91 fl (80-97); MONOCYTES % (AUTO) 7.5 % (3-13); PLATELET COUNT 280 10^3/uL (150-450); RED BLOOD COUNT 3.92 10^6/uL (3.72-5.28); RED CELL DISTRIBUTION WIDTH 15.3 % (11.5-14.0); SEGMENTED NEUTROPHILS % (AUTO) 77.2 % (42-78); TOTAL CELLS COUNTED % (AUTO) 100 %; WHITE BLOOD COUNT 13.1 10^3/uL (4.0-10.5)
[2018-04-13] MEDS: LANSOPRAZOLE 30 MG TAB.RAP.DR PO SCH (05:47)
[2018-04-13 06:24] LABS: ALANINE AMINOTRANSFERASE 45 U/L (9-52); ALBUMIN 3.5 g/dL (3.5-5.0); ALKALINE PHOSPHATASE 48 U/L (38-126); ANION GAP 6 (5-19); ASPARTATE AMINO TRANSFERASE 35 U/L (14-36); BILIRUBIN,DIRECT 0.3 mg/dL (0.0-0.4); BILIRUBIN,TOTAL 0.4 mg/dL (0.2-1.3); BLOOD UREA NITROGEN 22 mg/dL (7-20); CALCIUM 8.7 mg/dL (8.4-10.2); CARBON DIOXIDE 25 mmol/L (22-30); CHLORIDE 108 mmol/L (98-107); CHOLESTEROL 168.64 mg/dL (0-200); GLUCOSE 106 mg/dL (75-110); POTASSIUM 5.1 mmol/L (3.6-5.0); SODIUM 138.7 mmol/L (137-145); TRIGLYCERIDES 214 mg/dL (<150)
[2018-04-13 06:35] LABS: DIRECT LDL 94 mg/dL (<100)
[2018-04-13 06:37] LABS: LITHIUM < 0.2 mEq/L (0.6-1.2); VLDL CHOLESTEROL 42.8 mg/dL (10-31)
[2018-04-13] MEDS: ONDANSETRON HCL INJ/PF 4 MG/2 ML SDV IV PRN (08:02)
[2018-04-13] MEDS: IPRATROPIUM BROMIDE 0.02% NEB 0.5 MG/2.5 ML AMPUL NEB SCH (08:24)
[2018-04-13] MEDS: LEVALBUTEROL HCL NEB 1.25 MG/3 ML AMPUL NEB SCH ×3 (08:24→23:49)
[2018-04-13] MEDS: BUDESONIDE NEB 0.5 MG/2 ML AMPUL NEB SCH ×2 (08:24→20:44)
[2018-04-13] MEDS ORDERED: DULOXETINE HCL 30 MG CAPSULE.DR PO SCH (10:00)
[2018-04-13] MEDS ORDERED: POTASSIUM CHLORIDE 10 MEQ CAPSULE.ER PO SCH (10:00)
[2018-04-13] MEDS ORDERED: QUETIAPINE FUMARATE 100 MG TABLET PO SCH (10:00)
[2018-04-13] MEDS: AMITRIPTYLINE HCL 25 MG TABLET PO SCH (12:50)
[2018-04-13] MEDS: CETIRIZINE 10 MG TABLET PO SCH (12:50)
[2018-04-13] MEDS: ENOXAPARIN SODIUM INJ 40 MG/0.4 ML DISP.SYRIN SUBCUT SCH (12:50)
[2018-04-13] MEDS: FOLIC ACID 1 MG TABLET PO SCH (12:50)
[2018-04-13] MEDS: LITHIUM CARBONATE 450 MG TABLET.ER PO SCH ×2 (12:54→21:30)
[2018-04-13] MEDS: PROPRANOLOL HCL 10 MG TABLET PO SCH ×2 (12:54→21:30)
--- NOTE | 2018-04-13 13:42 | RADIOLOGY REPORT (SQ) ---
EXAM DESCRIPTION: CHEST 2 VIEWS COMPLETED DATE/TIME: 04/13/2018 1:32 pm REASON FOR STUDY: f/u possible PNA COMPARISON: 12 on the 18 EXAM PARAMETERS: NUMBER OF VIEWS: two views TECHNIQUE: Digital Frontal and Lateral radiographic views of the chest acquired. RADIATION DOSE: NA LIMITATIONS: none FINDINGS: LUNGS AND PLEURA: There appears to be limited opacification in the right base. MEDIASTINUM AND HILAR STRUCTURES: No masses or contour abnormalities. HEART AND VASCULAR STRUCTURES: Heart normal size. No evidence for failure. BONES: No acute findings. HARDWARE: None in the chest. OTHER: No other significant finding. IMPRESSION: Limited right lower lobe pneumonia. TECHNICAL DOCUMENTATION: JOB ID: [id number] [employer]- All Rights Reserved Reading location - IP/workstation name: [email or web address]
[2018-04-13] MEDS ORDERED: METHYLPREDNISOLONE INJ 40 MG/1 ML SDV IV SCH (14:00)
[2018-04-13] MEDS ORDERED: IPRATROPIUM/ALBUTEROL 0.5-2.5 MG/3 ML AMPUL NEB SCH (14:45)
[2018-04-13] MEDS: DULOXETINE HCL 30 MG CAPSULE.DR PO SCH (14:46)
[2018-04-13] MEDS: KETOROLAC TROMETHAMINE INJ/PF 30 MG/1 ML SDV IV PRN (14:46)
[2018-04-13] MEDS: DIAZEPAM 5 MG TABLET PO PRN (14:46)
[2018-04-13] MEDS: METHYLPREDNISOLONE INJ 125 MG/2 ML SDV IV SCH ×2 (14:47→21:30)
--- NOTE | 2018-04-13 15:14 | PDOC PROGRESS REPORT ---
Addendum entered and electronically signed by CONSUELO MORTON PA-C 04/13/18 15:17: Provider Note Provider Note: stop K+ supplement kayexelate x 1 recheck in am check mag Addendum entered and electronically signed by CONSUELO MORTON PA-C 04/13/18 15:15: Provider Note Provider Note: sputum cx 4+ poly. few epitheal. negative blood cx x 24h negative urine cx x 24h Original Note: Subjective Progress Note for:: 04/13/18 Subjective:: July DIONCIIO is a 42 year old female with past medical hx of bipolar, anxiety, fibromyalgia, current smoker (21ppd hx), fatty liver disease, idiopathic angioedema, psoriatic arthritis, and dx of asthma in 2018 by traffic assistant. Mrs Mccartney continues to report SOB. She does have a wheeze today. is able to provide additional information. Seems our patient has been taking approx 30mg daily of po prednisone for the past month. Her SOB has chronically/subtly gotten worse over the past 4-5 years, and acutely gotten worse over the past month. She does admit to orthopnea, PND, and possible MIRIAM symptoms. She had an ECHO approx 3 years ago, but denies recent visits w/certified midwife. Breathing treatments continue to provide mild relief. Denies F/C/CP. Reason For Visit: PNEUMONIA,COPD EXAC Physical Exam Vital Signs: Temp Pulse Resp BP Pulse Ox 98.8 F 101 H 12 111/74 97 04/13/18 12:11 04/13/18 12:11 04/13/18 12:11 04/13/18 12:11 04/13/18 12:44 Pulse Oximeter Continuous Start: 04/12/18 17:14 Freq: RTQ4 Status: Active Protocol: Document 04/13/18 12:44 [facility] (Rec: 04/13/18 12:44 [facility] [id number]) Pulse Oximetry Assessment Oxygen Saturation (92-100) 97 Oxygen Flow Rate (L/min) 2 Oxygen Delivery Method Nasal Cannula Equipment Usage Equipment in Use Continuous SpO2 Machine # 5 Intake & Output 04/12/18 04/13/18 04/14/18 06:59 06:59 06:59 Intake Total 902 592 Balance 902 592 Weight 140.2 kg 140.2 kg General appearance: PRESENT: no acute distress, morbidly obese Head exam: PRESENT: atraumatic Eye exam: PRESENT: conjunctiva pink, EOMI, PERRLA. ABSENT: scleral icterus Ear exam: PRESENT: normal external ear exam Mouth exam: PRESENT: moist, tongue midline Respiratory exam: PRESENT: wheezes, other - somewhat coarse Cardiovascular exam: PRESENT: RRR, +S1, +S2 Pulses: PRESENT: normal dorsalis pedis pul Vascular exam: PRESENT: normal capillary refill GI/Abdominal exam: PRESENT: normal bowel sounds, soft. ABSENT: distended, guarding, mass, organolmegaly, rebound, tenderness Rectal exam: PRESENT: deferred Extremities exam: PRESENT: pedal edema, +1 edema Musculoskeletal exam: PRESENT: full ROM Neurological exam: PRESENT: alert, awake, oriented to person, oriented to place, oriented to time, oriented to situation, CN II-XII grossly intact. ABSENT: motor sensory deficit Psychiatric exam: PRESENT: anxious Results Laboratory Results: 04/13/18 04:15 04/13/18 04:15 04/12/18 04/12/18 04/13/18 18:00 19:40 04:15 WBC 13.1 H RBC 3.92 Hgb 11.5 L Hct 35.6 L MCV 91 MCH 29.3 MCHC 32.3 RDW 15.3 H Plt Count 280 Seg Neutrophils % 77.2 Lymphocytes % 14.8 Monocytes % 7.5 Eosinophils % 0.2 Basophils % 0.3 Absolute Neutrophils 10.1 H Absolute Lymphocytes 1.9 Absolute Monocytes 1.0 Absolute Eosinophils 0.0 Absolute Basophils 0.0 Carbonic Acid 1.53 H HCO3/H2CO3 Ratio 17:1 ABG pH 7.33 L ABG pCO2 50.7 H ABG pO2 82.2 ABG HCO3 26.1 H ABG O2 Saturation 95.3 ABG Base Excess -0.5 FiO2 ROOM AIR Sodium Potassium Chloride Carbon Dioxide Anion Gap BUN Creatinine Est GFR ( Amer) Est GFR (Non-Af Amer) Glucose Calcium Total Bilirubin AST ALT Alkaline Phosphatase Total Protein Albumin Triglycerides Cholesterol LDL Cholesterol Direct VLDL Cholesterol HDL Cholesterol Urine Color YELLOW Urine Appearance CLOUDY Urine pH 5.0 Ur Specific [place] 1.016 Urine Protein NEGATIVE Urine Glucose (UA) NEGATIVE Urine Ketones NEGATIVE Urine Blood NEGATIVE Urine Nitrite NEGATIVE Ur Leukocyte Esterase NEGATIVE Urine WBC (Auto) 0 Urine RBC (Auto) 1 04/13/18 04:15 WBC RBC Hgb Hct MCV MCH MCHC RDW Plt Count Seg Neutrophils % Lymphocytes % Monocytes % Eosinophils % Basophils % Absolute Neutrophils Absolute Lymphocytes Absolute Monocytes Absolute Eosinophils Absolute Basophils Carbonic Acid HCO3/H2CO3 Ratio ABG pH ABG pCO2 ABG pO2 ABG HCO3 ABG O2 Saturation ABG Base Excess FiO2 Sodium 138.7 Potassium 5.1 H Chloride 108 H Carbon Dioxide 25 Anion Gap 6 BUN 22 H Creatinine 0.60 Est GFR ( Amer) > 60 Est GFR (Non-Af Amer) > 60 Glucose 106 Calcium 8.7 Total Bilirubin 0.4 AST 35 ALT 45 Alkaline Phosphatase 48 Total Protein 6.0 L Albumin 3.5 Triglycerides 214 H Cholesterol 168.64 LDL Cholesterol Direct 94 VLDL Cholesterol 42.8 H HDL Cholesterol 48 Urine Color Urine Appearance Urine pH Ur Specific [place] Urine Protein Urine Glucose (UA) Urine Ketones Urine Blood Urine Nitrite Ur Leukocyte Esterase Urine WBC (Auto) Urine RBC (Auto) 04/12/18 04/12/18 04/12/18 11:47 11:47 12:53 Creatine Kinase Cancelled Cancelled Troponin I < 0.012 04/12/18 13:36 Creatine Kinase 493 H Troponin I Impressions: Chest X-Ray 04/13/18 08:00 IMPRESSION: Limited right lower lobe pneumonia. Assessment & Plan - Diagnosis (1) Psoriatic arthritis Is this a current diagnosis for this admission?: Yes (2) Cough Is this a current diagnosis for this admission?: Yes (3) Asthma Is this a current diagnosis for this admission?: Yes (4) Bipolar disorder, unspecified Is this a current diagnosis for this admission?: Yes - Time Time Spent with patient: 35 or more minutes Smoking Cessation Education: over 10 minutes Medications reviewed and adjusted accordingly: Yes Anticipated discharge: Home - Inpatient Certification Based on my medical assessment, after consideration of the patient's comorbidities, presenting symptoms, or acuity I expect that the services needed warrant INPATIENT care.: Yes I certify that my determination is in accordance with my understanding of Medicare's requirements for reasonable and necessary INPATIENT services [42 CFR 412.3e].: Yes - Plan Summary Plan Summary: SOB/Cough -seems to have an asthma component, possibly cardiac asthma in nature. could also have a anxiety/psych component -schedule xoponex, pulmicort, duonebs. -start iv solumedrol 60mg q8h -check ECHO -PNA seems unlikely if she did take and complete omnicef and doxy in the past month COPD -not formally diagnosed. needs repeat o/p PFTs -smoking cessation encouraged Borderline prolonged qti 02/2018 -WNL on 04/12/18 Psoriatic arthritis -remicade infusions o/p -follows with rheum bipolar -continue qhs seroquel -patient reports being compliant with meds. re-check lithium level anxiety -seems to also be playing a role in her SOB -lower cymbalta to recommended range. 90mg q am. stop qhs dose b/c of stimulating component (SNRI) -lowered tid valium due to respiratory complaints -continue prn vistaril -patient has been explained black box warning of benzo + narcotic use -defer further mgt to o/p Psych pain (arthritis/chronic) -iv toradol x 3 days. dvt prophylaxis: teds, lovenox
[2018-04-13] MEDS ORDERED: SODIUM POLYSTYRENE SULFONATE 15 GM/60 ML PO ONE (15:18)
[2018-04-13] MEDS: QUETIAPINE FUMARATE 100 MG TABLET PO SCH (21:30)
[2018-04-13] MEDS: MONTELUKAST SODIUM 10 MG TABLET PO SCH (21:30)
[2018-04-13] MEDS: GUAIFENESIN 600 MG TABLET.SA PO SCH (21:30)
[2018-04-14] MEDS: KETOROLAC TROMETHAMINE INJ/PF 30 MG/1 ML SDV IV PRN ×2 (01:10→09:07)
[2018-04-14] MEDS: METHYLPREDNISOLONE INJ 125 MG/2 ML SDV IV SCH ×3 (05:28→21:21)
[2018-04-14] MEDS: LANSOPRAZOLE 30 MG TAB.RAP.DR PO SCH (05:29)
[2018-04-14 06:17] LABS: ABSOLUTE LYMPHOCYTES (AUTO) 1.2 10^3/uL (0.5-4.7); ABSOLUTE NEUT (AUTO) 10.7 10^3/uL (1.7-8.2); BASOPHILS % (AUTO) 0.3 % (0-2); HEMATOCRIT 35.2 % (36.0-47.0); HEMOGLOBIN 11.4 g/dL (12.0-15.5); MEAN CORPUSCULAR HEMOGLOBIN 29.4 pg (27.0-33.4); MEAN CORPUSCULAR HGB CONC 32.5 g/dL (32.0-36.0); MEAN CORPUSCULAR VOLUME 91 fl (80-97); MONOCYTES % (AUTO) 7.9 % (3-13); PLATELET COUNT 222 10^3/uL (150-450); RED BLOOD COUNT 3.89 10^6/uL (3.72-5.28); RED CELL DISTRIBUTION WIDTH 15.3 % (11.5-14.0); SEGMENTED NEUTROPHILS % (AUTO) 82.8 % (42-78); TOTAL CELLS COUNTED % (AUTO) 100 %; WHITE BLOOD COUNT 12.9 10^3/uL (4.0-10.5)
[2018-04-14 06:43] LABS: ANION GAP 5 (5-19); BLOOD UREA NITROGEN 26 mg/dL (7-20); CALCIUM 8.1 mg/dL (8.4-10.2); CARBON DIOXIDE 28 mmol/L (22-30); CHLORIDE 106 mmol/L (98-107); GLUCOSE 131 mg/dL (75-110); SODIUM 138.9 mmol/L (137-145)
[2018-04-14] MEDS: LEVALBUTEROL HCL NEB 1.25 MG/3 ML AMPUL NEB SCH ×3 (08:22→23:46)
[2018-04-14] MEDS: BUDESONIDE NEB 0.5 MG/2 ML AMPUL NEB SCH ×2 (08:22→19:41)
[2018-04-14] MEDS: GUAIFENESIN 600 MG TABLET.SA PO SCH ×2 (09:07→21:20)
[2018-04-14] MEDS: FOLIC ACID 1 MG TABLET PO SCH (09:07)
[2018-04-14] MEDS: ENOXAPARIN SODIUM INJ 40 MG/0.4 ML DISP.SYRIN SUBCUT SCH (09:08)
[2018-04-14] MEDS: DULOXETINE HCL 30 MG CAPSULE.DR PO SCH (09:08)
[2018-04-14] MEDS: AMITRIPTYLINE HCL 25 MG TABLET PO SCH (09:08)
[2018-04-14] MEDS: CETIRIZINE 10 MG TABLET PO SCH (09:08)
[2018-04-14] MEDS: PROPRANOLOL HCL 10 MG TABLET PO SCH ×2 (09:09→21:20)
[2018-04-14] MEDS: LITHIUM CARBONATE 450 MG TABLET.ER PO SCH ×2 (09:10→21:20)
[2018-04-14] MEDS: MORPHINE SULFATE 10 MG/ML INJ IV PRN ×2 (09:12→21:22)
--- NOTE | 2018-04-14 12:46 | Physician Advisory Note ---
Physician Advisor [employer] .: Pursuant to the plan for Shola Watters, I have reviewed the medical record for this patient. Physician Advisor Statement: Please document, if you agree: 1. "Suspected Acute exacerbation of mild intermittent/sbsj-uox-neu persistent asthma"?, - or no acute exacerbation (still need underlying type stated, see below)? - if no acute exac asthma, then is there likely "acute bronchitis"? "COPD exac"? ... 2. "obesity w/BMI 51.1" (we now have to explicitly state the BMI w/this dx) 3. Please make it very clear what is so worrisome about pt at this time that she has to have her tx/eval in hospital rather than outpt - payers love to say we haven't proved the need for hospital level of care, especially when the main dx.s are chronic dx.s &/or nonspecific sx dx.s like "cough" - Does pt have unstable VS? Needing O2? Significantly worse than baseline breathing status? Are you acutely CONCERNED about pt (if so, what concerns you?) - or is it time for pt to go home and f/u in office in 1-2 days? Thanks for your help with specific documentation, & please feel free to text if ?s! MD Salud, Physician Advisor [phone] Dx of type of chronic asthma is based on worst category in which pt has at least 1 of following s/s present at baseline: A. Mild Intermittent: only needs albuterol occasionally. B. Mild Persistent: sx >2x/wk, nocturnal sx up to 4x/mo, FEV1 80+% predicted C. Mod Persistent: sx (or albuterol) daily, nocturnal sx >1x/wk, FEV1 60-80% predicted D. Severe Persistent: activities curtailed, frequent exacerbations, noct sx frequent, FEV1 <60% predicted.
--- NOTE | 2018-04-14 17:36 | PDOC PROGRESS REPORT ---
Subjective Progress Note for:: 04/14/18 Subjective:: July DIONICIO is a 42 year old female with past medical hx of bipolar, anxiety, fibromyalgia, current smoker (21ppd hx), fatty liver disease, idiopathic angioedema, psoriatic arthritis, and dx of asthma in 2018 by overlocker. Mrs Mccartney continues to have shortness of breath and an expiratory wheeze. Both have shown slight improvement with the start of IV steroids. She continues to endorse symptoms of orthopnea and PND. She reports shortness of breath if laying supine in under 1 minute. Her WBCs have trended down to 12.9. She reports subjective warm spells, but does not endorse fever or chills. She reports her cough and sputum production have mildly decreased. She continues to become short of breath with little movement. Reason For Visit: PNEUMONIA, asthma exacerbation Physical Exam Vital Signs: Temp Pulse Resp BP Pulse Ox 97.9 F 84 21 H 94/64 L 97 04/14/18 11:52 04/14/18 11:52 04/14/18 11:52 04/14/18 11:52 04/14/18 12:00 Pulse Oximeter Continuous Start: 04/12/18 17:14 Freq: RTQ4 Status: Active Protocol: Document 04/14/18 12:00 [facility] [place] (Rec: 04/14/18 13:18 [facility] [place] [id number]) Pulse Oximetry Assessment Oxygen Saturation (92-100) 97 Oxygen Flow Rate (L/min) 3 Oxygen Delivery Method Nasal Cannula Fraction of Inspired Oxygen (FIO2) 32 Equipment Usage Equipment in Use Continuous SpO2 Machine # N 5 Intake & Output 04/13/18 04/14/18 04/15/18 06:59 06:59 06:59 Intake Total 902 2009 Balance 902 2009 Weight 140.2 kg 143.6 kg General appearance: PRESENT: no acute distress, morbidly obese Head exam: PRESENT: atraumatic, normocephalic Eye exam: PRESENT: conjunctiva pink, EOMI, PERRLA. ABSENT: scleral icterus Ear exam: PRESENT: normal external ear exam Mouth exam: PRESENT: moist, tongue midline Respiratory exam: PRESENT: decreased breath sounds, prolonged expiratory phas, rhonchi, wheezes Cardiovascular exam: PRESENT: RRR, +S1, +S2 Pulses: PRESENT: normal carotid pulses Vascular exam: PRESENT: normal capillary refill GI/Abdominal exam: PRESENT: normal bowel sounds, soft. ABSENT: distended, guarding, mass, organolmegaly, rebound, tenderness Rectal exam: PRESENT: deferred Extremities exam: PRESENT: +2 edema - Bilateral lower extremities Musculoskeletal exam: PRESENT: full ROM Neurological exam: PRESENT: alert, awake, oriented to person, oriented to place, oriented to time, oriented to situation, CN II-XII grossly intact. ABSENT: motor sensory deficit Psychiatric exam: PRESENT: anxious, normal mood Results Laboratory Results: 04/14/18 05:52 04/14/18 05:52 04/14/18 04/14/18 05:52 05:52 WBC 12.9 H RBC 3.89 Hgb 11.4 L Hct 35.2 L MCV 91 MCH 29.4 MCHC 32.5 RDW 15.3 H Plt Count 222 Seg Neutrophils % 82.8 H Lymphocytes % 9.0 L Monocytes % 7.9 Eosinophils % 0.0 Basophils % 0.3 Absolute Neutrophils 10.7 H Absolute Lymphocytes 1.2 Absolute Monocytes 1.0 Absolute Eosinophils 0.0 Absolute Basophils 0.0 Sodium 138.9 Potassium 5.0 Chloride 106 Carbon Dioxide 28 Anion Gap 5 BUN 26 H Creatinine 0.61 Est GFR ( Amer) > 60 Est GFR (Non-Af Amer) > 60 Glucose 131 H Calcium 8.1 L Magnesium 2.0 04/12/18 19:40 Clean Catch Midstream Urine Culture - Final C.albicans/C.dubliniensis Mixed Urogenital Jazz 04/12/18 11:39 Sputum Gram Stain - Final 04/12/18 11:39 Sputum Sputum Culture - Final NORMAL JAZZ 04/12/18 04/12/18 04/12/18 11:47 11:47 12:53 Creatine Kinase Cancelled Cancelled Troponin I < 0.012 04/12/18 13:36 Creatine Kinase 493 H Troponin I Impressions: Chest X-Ray 04/13/18 08:00 IMPRESSION: Limited right lower lobe pneumonia. Assessment & Plan - Diagnosis (1) Psoriatic arthritis Is this a current diagnosis for this admission?: Yes (2) Cough Is this a current diagnosis for this admission?: Yes (3) Asthma Is this a current diagnosis for this admission?: Yes (4) Bipolar disorder, unspecified Is this a current diagnosis for this admission?: Yes (5) Pneumonia Qualifiers: Laterality: right Lung location: lower lobe of lung Is this a current diagnosis for this admission?: Yes (6) Moderate asthma with acute exacerbation Is this a current diagnosis for this admission?: Yes (7) Morbid obesity Is this a current diagnosis for this admission?: Yes Plan: BMI 51. - Time Time Spent with patient: 35 or more minutes Smoking Cessation Education: over 10 minutes Medications reviewed and adjusted accordingly: Yes - Inpatient Certification Based on my medical assessment, after consideration of the patient's comorbidities, presenting symptoms, or acuity I expect that the services needed warrant INPATIENT care.: Yes I certify that my determination is in accordance with my understanding of Medicare's requirements for reasonable and necessary INPATIENT services [42 CFR 412.3e].: Yes - Plan Summary Plan Summary: Right lower lobe pneumonia/asthma exacerbation -Diagnosed on chest x-ray. If sputum and blood cultures. -seems to have an asthma component, possibly cardiac asthma in nature. could also have a anxiety/psych component -schedule xoponex, pulmicort, duonebs. -start iv solumedrol 60mg q8h -Echo results still pending - COPD -not formally diagnosed. needs repeat o/p PFTs -smoking cessation encouraged -Treatment as listed above Borderline prolonged qti 02/2018 -WNL on 04/12/18 Psoriatic arthritis -remicade infusions o/p every 6 weeks and intermittent oral steroid use -follows with rheum -Chronically immunocompromised bipolar -continue qhs seroquel -patient reports being compliant with meds. re-check lithium level anxiety -seems to also be playing a role in her SOB -lower cymbalta to recommended range. 90mg q am. stop qhs dose b/c of stimulating component (SNRI) -lowered tid valium due to respiratory complaints -continue prn vistaril -patient has been explained black box warning of benzo + narcotic use -defer further mgt to o/p Psych pain (arthritis/chronic) -iv toradol x 3 days. Hyperkalemia -Resolved with Kayexalate and stopping p.o. supplement. Monitoring. Morbid obesity -BMI 51.1. Education provided. Status post gastric bypass surgery > years ago. -Complicates current condition. dvt prophylaxis: teds, lovenox Disposition: Echo results should help with a definitive diagnosis. Currently seems to be an asthma exacerbation in addition to a right lower lobe pneumonia. Would like to increase IV steroids if echo results show that shortness of breath is not cardiac induced. However if we were to go ahead and increase the steroids and it turned out that the shortness of breath is cardiac induced, it would make her breathing worse. Continues to be significant concern for sending the patient home given that this has been an ongoing problem for over 4-6 weeks now. Early discharge without proper diagnosis and treatment would surely lead to a rebound admission, as well as be dangerous for the patient. Given her body habitus and chronic immunocompromisation further management needs to be done inpatient. Though her BNP was not significantly elevated, it was mildly elevated, and could be falsely low due to obesity.
[2018-04-14] MEDS: MONTELUKAST SODIUM 10 MG TABLET PO SCH (21:20)
[2018-04-14] MEDS: DIAZEPAM 5 MG TABLET PO PRN (21:21)
[2018-04-14] MEDS: QUETIAPINE FUMARATE 100 MG TABLET PO SCH (21:21)
[2018-04-15] MEDS: ACETAMINOPHEN 325 MG TABLET PO PRN (03:50)
[2018-04-15 05:06] LABS: ABSOLUTE MONOCYTES (AUTO) 0.3 10^3/uL (0.1-1.4); ABSOLUTE NEUT (AUTO) 8.1 10^3/uL (1.7-8.2); BASOPHILS % (AUTO) 0.3 % (0-2); HEMATOCRIT 37.1 % (36.0-47.0); LYMPHOCYTES % (AUTO) 10.5 % (13-45); MEAN CORPUSCULAR HEMOGLOBIN 29.4 pg (27.0-33.4); MEAN CORPUSCULAR HGB CONC 32.2 g/dL (32.0-36.0); MEAN CORPUSCULAR VOLUME 91 fl (80-97); MONOCYTES % (AUTO) 3.7 % (3-13); PLATELET COUNT 267 10^3/uL (150-450); RED BLOOD COUNT 4.06 10^6/uL (3.72-5.28); RED CELL DISTRIBUTION WIDTH 15.5 % (11.5-14.0); SEGMENTED NEUTROPHILS % (AUTO) 85.5 % (42-78); TOTAL CELLS COUNTED % (AUTO) 100 %; WHITE BLOOD COUNT 9.5 10^3/uL (4.0-10.5)
[2018-04-15] MEDS: METHYLPREDNISOLONE INJ 125 MG/2 ML SDV IV SCH ×3 (05:16→22:28)
[2018-04-15] MEDS: LANSOPRAZOLE 30 MG TAB.RAP.DR PO SCH (05:17)
[2018-04-15 05:59] LABS: ANION GAP 9 (5-19); BLOOD UREA NITROGEN 25 mg/dL (7-20); CALCIUM 8.5 mg/dL (8.4-10.2); CARBON DIOXIDE 25 mmol/L (22-30); CHLORIDE 106 mmol/L (98-107); GLUCOSE 172 mg/dL (75-110); LITHIUM 0.6 mEq/L (0.6-1.2); POTASSIUM 5.2 mmol/L (3.6-5.0); SODIUM 139.8 mmol/L (137-145)
[2018-04-15] MEDS: BUDESONIDE NEB 0.5 MG/2 ML AMPUL NEB SCH ×2 (09:01→21:06)
[2018-04-15] MEDS: LEVALBUTEROL HCL NEB 1.25 MG/3 ML AMPUL NEB SCH ×2 (09:01→16:44)
[2018-04-15] MEDS: DULOXETINE HCL 30 MG CAPSULE.DR PO SCH (10:11)
[2018-04-15] MEDS: GUAIFENESIN 600 MG TABLET.SA PO SCH ×2 (10:12→22:28)
[2018-04-15] MEDS: CETIRIZINE 10 MG TABLET PO SCH (10:12)
[2018-04-15] MEDS: ENOXAPARIN SODIUM INJ 40 MG/0.4 ML DISP.SYRIN SUBCUT SCH (10:12)
[2018-04-15] MEDS: AMITRIPTYLINE HCL 25 MG TABLET PO SCH (10:13)
[2018-04-15] MEDS: LITHIUM CARBONATE 450 MG TABLET.ER PO SCH ×2 (10:13→22:28)
[2018-04-15] MEDS: FOLIC ACID 1 MG TABLET PO SCH (10:13)
[2018-04-15] MEDS: PROPRANOLOL HCL 10 MG TABLET PO SCH (10:14)
[2018-04-15] MEDS ORDERED: FUROSEMIDE INJ/PF 40 MG/4 ML SDV IV ONE (13:15)
[2018-04-15] MEDS: LORAZEPAM INJ 2 MG/1 ML VIAL IV PRN ×2 (14:23→22:27)
--- NOTE | 2018-04-15 15:49 | PDOC PROGRESS REPORT ---
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 Mrs Mccartney breathing showed mild improvement over the last 24 hours. She believes the IV trial of Lasix was beneficial. She also believes that the steroids have been helpful. She does have less of a wheeze. She continues to be anxious about her breathing. She continues to intermittently report a subjective style fever/chills, but objectively continues to not have a fever/chills. Reason For Visit: PNEUMONIA,COPD EXAC Physical Exam Vital Signs: Temp Pulse Resp BP Pulse Ox 98.3 F 95 20 112/68 98 04/15/18 11:02 04/15/18 11:02 04/15/18 11:02 04/15/18 11:02 04/15/18 12:00 Pulse Oximeter Continuous Start: 04/12/18 17:14 Freq: RTQ4 Status: Active Protocol: Document 04/15/18 12:00 [facility] (Rec: 04/15/18 12:56 [facility] [id number]) Pulse Oximetry Assessment Oxygen Saturation (92-100) 98 Oxygen Flow Rate (L/min) 3 Oxygen Delivery Method Nasal Cannula Fraction of Inspired Oxygen (FIO2) 32 Equipment Usage Equipment in Use Continuous SpO2 Machine # 5 Intake & Output 04/14/18 04/15/18 04/16/18 06:59 06:59 06:59 Intake Total 2009 946 Balance 2009 946 Weight 143.6 kg 149.7 kg Results Laboratory Results: 04/15/18 03:45 04/15/18 03:45 04/15/18 04/15/18 03:45 03:45 WBC 9.5 RBC 4.06 Hgb 12.0 Hct 37.1 MCV 91 MCH 29.4 MCHC 32.2 RDW 15.5 H Plt Count 267 Seg Neutrophils % 85.5 H Lymphocytes % 10.5 L Monocytes % 3.7 Eosinophils % 0.0 Basophils % 0.3 Absolute Neutrophils 8.1 Absolute Lymphocytes 1.0 Absolute Monocytes 0.3 Absolute Eosinophils 0.0 Absolute Basophils 0.0 Sodium 139.8 Potassium 5.2 H Chloride 106 Carbon Dioxide 25 Anion Gap 9 BUN 25 H Creatinine 0.51 L Est GFR ( Amer) > 60 Est GFR (Non-Af Amer) > 60 Glucose 172 H Calcium 8.5 04/12/18 19:40 Clean Catch Midstream Urine Culture - Final C.albicans/C.dubliniensis Mixed Urogenital Jazz 04/12/18 04/12/18 04/12/18 11:47 11:47 12:53 Creatine Kinase Cancelled Cancelled Troponin I < 0.012 04/12/18 13:36 Creatine Kinase 493 H Troponin I Impressions: Chest X-Ray 04/13/18 08:00 IMPRESSION: Limited right lower lobe pneumonia. Assessment & Plan - Diagnosis (1) Psoriatic arthritis Is this a current diagnosis for this admission?: Yes (2) Cough Is this a current diagnosis for this admission?: Yes (3) Asthma Is this a current diagnosis for this admission?: Yes (4) Bipolar disorder, unspecified Is this a current diagnosis for this admission?: Yes (5) Pneumonia Qualifiers: Laterality: right Lung location: lower lobe of lung Is this a current diagnosis for this admission?: Yes (6) Moderate asthma with acute exacerbation Is this a current diagnosis for this admission?: Yes (7) Morbid obesity Is this a current diagnosis for this admission?: Yes - Plan Summary Plan Summary: Right lower lobe pneumonia/asthma exacerbation/ COPD (not formally diagnosed. Needs repeat outpatient PFTs) -Diagnosed on chest x-ray. Negative sputum and blood cultures. Normal vital signs. Diagnosis seems questionable, however patient's breathing has not significantly improved, thus we will go ahead and start antibiotics. -schedule xoponex, pulmicort, duonebs. -iv solumedrol 60mg q8h -Smoking cessation strongly encouraged. -Repeat chest x-ray 04/16 SOB -May be related to pulmonary edema given symptoms of orthopnea, PND, and lower extremity swelling. Echocardiogram pending. BNP may be falsely low due to p atient's body habitus (BMI 53.3) -IV Lasix 40 mg x1. -IV Lasix 20 mg twice daily. Borderline prolonged qti 02/2018 -WNL on 04/12/18 Psoriatic arthritis -remicade infusions o/p every 6 weeks and intermittent oral steroid use -follows with rheum -Chronically immunocompromised bipolar/Anxiety -continue qhs seroquel -At a dose of 450 mg bid the patient's lithium level is within normal limits (0 .6). However due to the risk of toxicity when using Lasix we will lower her lithium to 300 mg bid. -anxiety seems to also be playing a role in her SOB -cymbalta 90mg qam -continue prn vistaril -patient has been explained black box warning of benzo + narcotic use -Stop Valium as patient reports poor absorption orally. Trial IV Ativan 0.5 mg every 6 hours as needed anxiety Hypotension -Suspect much of the hypotension related to the morphine. Discontinue morphine protocol other than 1 mg IV every 4 hours as needed -Hold parameters placed for medications -Stop propranolol Pain (arthritis/chronic) -iv toradol x 3 days. -Lower dose of IV morphine as above. Hyperkalemia -Should resolve with Lasix, however will order an additional dose of Kayexalate Morbid obesity -BMI 51.1. Education provided. Status post gastric bypass surgery > years ago. -Complicates current condition. dvt prophylaxis: angelita gregorio Disposition: Concern remains about sending the patient home. She continues to require supplemental oxygen. Definitive diagnosis is still not confirmed at this point. We will continue to treat for an asthma exacerbation, pneumonia, and in the setting of pulmonary edema secondary to CHF/fluid overload
[2018-04-15] MEDS ORDERED: LEVOFLOXACIN 500 MG TABLET PO SCH (16:30)
[2018-04-15] MEDS: ONDANSETRON HCL INJ/PF 4 MG/2 ML SDV IV PRN (17:35)
[2018-04-15] MEDS: NYSTATIN 500000 UNIT/5 ML UDCUP PO SCH (20:56)
[2018-04-15] MEDS: HYDROXYZINE PAMOATE 25 MG CAPSULE PO PRN (20:56)
[2018-04-15] MEDS: BENZONATATE 100 MG CAPSULE PO PRN (20:56)
[2018-04-15] MEDS: KETOROLAC TROMETHAMINE INJ/PF 30 MG/1 ML SDV IV PRN (20:56)
[2018-04-15] MEDS: MONTELUKAST SODIUM 10 MG TABLET PO SCH (22:28)
[2018-04-15] MEDS: QUETIAPINE FUMARATE 100 MG TABLET PO SCH (22:28)
[2018-04-15] MEDS: FUROSEMIDE INJ/PF 20 MG/2 ML SDV IV SCH (22:28)
[2018-04-16] MEDS: LEVALBUTEROL HCL NEB 1.25 MG/3 ML AMPUL NEB SCH ×3 (00:04→15:55)
[2018-04-16] MEDS: MORPHINE SULFATE 10 MG/ML INJ IV PRN ×3 (01:27→23:18)
[2018-04-16] MEDS: LORAZEPAM INJ 2 MG/1 ML VIAL IV PRN ×2 (05:16→22:40)
[2018-04-16] MEDS: METHYLPREDNISOLONE INJ 125 MG/2 ML SDV IV SCH ×3 (05:16→22:35)
[2018-04-16] MEDS: KETOROLAC TROMETHAMINE INJ/PF 30 MG/1 ML SDV IV PRN (05:17)
[2018-04-16] MEDS: LANSOPRAZOLE 30 MG TAB.RAP.DR PO SCH (05:17)
[2018-04-16 05:50] LABS: HEMATOCRIT 37.9 % (36.0-47.0); HEMOGLOBIN 12.6 g/dL (12.0-15.5); MEAN CORPUSCULAR HEMOGLOBIN 29.8 pg (27.0-33.4); MEAN CORPUSCULAR HGB CONC 33.2 g/dL (32.0-36.0); MEAN CORPUSCULAR VOLUME 90 fl (80-97); PLATELET COUNT 289 10^3/uL (150-450); RED BLOOD COUNT 4.22 10^6/uL (3.72-5.28); RED CELL DISTRIBUTION WIDTH 14.6 % (11.5-14.0); WHITE BLOOD COUNT 10.9 10^3/uL (4.0-10.5)
[2018-04-16 05:56] LABS: ALANINE AMINOTRANSFERASE 37 U/L (9-52); ALBUMIN 3.3 g/dL (3.5-5.0); ALKALINE PHOSPHATASE 44 U/L (38-126); ANION GAP 7 (5-19); ASPARTATE AMINO TRANSFERASE 28 U/L (14-36); BILIRUBIN,DIRECT 0.3 mg/dL (0.0-0.4); BILIRUBIN,TOTAL 0.3 mg/dL (0.2-1.3); BLOOD UREA NITROGEN 35 mg/dL (7-20); CALCIUM 8.3 mg/dL (8.4-10.2); CARBON DIOXIDE 29 mmol/L (22-30); CHLORIDE 103 mmol/L (98-107); GLUCOSE 151 mg/dL (75-110); POTASSIUM 4.5 mmol/L (3.6-5.0); SODIUM 139.1 mmol/L (137-145); TOTAL PROTEIN 5.9 g/dL (6.3-8.2)
[2018-04-16 07:19] LABS: ABSOLUTE LYMPHOCYTES# (MANUAL) 1.4 10^3/uL (0.5-4.7); ABSOLUTE MONOCYTES # (MANUAL) 0.8 10^3/uL (0.1-1.4); ABSOLUTE NEUTROPHILS# (MANUAL) 8.7 10^3/uL (1.7-8.2); BASOPHILS % (MANUAL) 0 % (0-2); EOSINOPHILS % (MANUAL) 0 % (0-6); LYMPHOCYTES % (MANUAL) 8 % (13-45); MONOCYTES % (MANUAL) 7 % (3-13); SEGMENTED NEUTROPHILS % (MAN) 80 % (42-78); TOTAL CELLS COUNTED 100
[2018-04-16 07:23] LABS: HELMET CELLS SLIGHT; POIKILOCYTOSIS SLIGHT; TEAR DROP CELLS 1+; TOXIC GRANULATION SLIGHT
[2018-04-16 07:24] LABS: PLATELET COMMENT ADEQUATE
[2018-04-16] MEDS: BUDESONIDE NEB 0.5 MG/2 ML AMPUL NEB SCH ×2 (08:55→20:29)
[2018-04-16] MEDS: NYSTATIN 500000 UNIT/5 ML UDCUP PO SCH ×2 (09:35→18:54)
[2018-04-16] MEDS: LITHIUM CARBONATE 450 MG TABLET.ER PO SCH (09:35)
[2018-04-16] MEDS: FUROSEMIDE INJ/PF 20 MG/2 ML SDV IV SCH (09:36)
[2018-04-16] MEDS: CETIRIZINE 10 MG TABLET PO SCH (09:36)
[2018-04-16] MEDS: FOLIC ACID 1 MG TABLET PO SCH (09:36)
[2018-04-16] MEDS: ENOXAPARIN SODIUM INJ 40 MG/0.4 ML DISP.SYRIN SUBCUT SCH (09:36)
[2018-04-16] MEDS: DULOXETINE HCL 30 MG CAPSULE.DR PO SCH (09:36)
[2018-04-16] MEDS: GUAIFENESIN 600 MG TABLET.SA PO SCH ×2 (09:36→22:35)
[2018-04-16] MEDS: AMITRIPTYLINE HCL 25 MG TABLET PO SCH (09:36)
--- NOTE | 2018-04-16 09:45 | RADIOLOGY REPORT (SQ) ---
EXAM DESCRIPTION: CHEST 2 VIEWS COMPLETED DATE/TIME: 04/16/2018 8:11 am REASON FOR STUDY: f/u [facility] COMPARISON: 04/13/2018 EXAM PARAMETERS: NUMBER OF VIEWS: two views TECHNIQUE: Digital Frontal and Lateral radiographic views of the chest acquired. RADIATION DOSE: NA LIMITATIONS: none FINDINGS: LUNGS AND PLEURA: No opacities, masses or pneumothorax. No pleural effusion. MEDIASTINUM AND HILAR STRUCTURES: No masses or contour abnormalities. HEART AND VASCULAR STRUCTURES: Heart normal size. No evidence for failure. BONES: No acute findings. HARDWARE: None in the chest. OTHER: Stable position of left-sided port. IMPRESSION: NO ACUTE RADIOGRAPHIC FINDING IN THE CHEST. TECHNICAL DOCUMENTATION: JOB ID: [id number] [employer]- All Rights Reserved Reading location - IP/workstation name: [email or web address]
[2018-04-16] MEDS ORDERED: LITHIUM CARBONATE 300 MG CAPSULE ONE (21:41)
[2018-04-16] MEDS ORDERED: FUROSEMIDE INJ/PF 20 MG/2 ML SDV IV SCH (22:00)
[2018-04-16] MEDS: LITHIUM CARBONATE 300 MG CAPSULE PO SCH (22:34)
[2018-04-16] MEDS: QUETIAPINE FUMARATE 100 MG TABLET PO SCH (22:34)
[2018-04-16] MEDS: FUROSEMIDE INJ/PF 40 MG/4 ML SDV IV SCH (22:35)
[2018-04-16] MEDS: MONTELUKAST SODIUM 10 MG TABLET PO SCH (22:35)
[2018-04-16] MEDS: ONDANSETRON HCL INJ/PF 4 MG/2 ML SDV IV PRN (23:21)
[2018-04-17] MEDS: LEVALBUTEROL HCL NEB 1.25 MG/3 ML AMPUL NEB SCH ×2 (00:06→08:54)
[2018-04-17] MEDS: METHYLPREDNISOLONE INJ 125 MG/2 ML SDV IV SCH (06:47)
[2018-04-17] MEDS: LORAZEPAM INJ 2 MG/1 ML VIAL IV PRN (06:47)
[2018-04-17] MEDS: MORPHINE SULFATE 10 MG/ML INJ IV PRN (06:47)
[2018-04-17] MEDS: LANSOPRAZOLE 30 MG TAB.RAP.DR PO SCH (06:48)
[2018-04-17] MEDS: BUDESONIDE NEB 0.5 MG/2 ML AMPUL NEB SCH (08:54)
[2018-04-17] MEDS: DULOXETINE HCL 30 MG CAPSULE.DR PO SCH (09:19)
[2018-04-17] MEDS: FUROSEMIDE INJ/PF 40 MG/4 ML SDV IV SCH (09:19)
[2018-04-17] MEDS: CETIRIZINE 10 MG TABLET PO SCH (09:19)
[2018-04-17] MEDS: GUAIFENESIN 600 MG TABLET.SA PO SCH (09:19)
[2018-04-17] MEDS: FOLIC ACID 1 MG TABLET PO SCH (09:19)
[2018-04-17] MEDS: AMITRIPTYLINE HCL 25 MG TABLET PO SCH (09:19)
[2018-04-17] MEDS: ENOXAPARIN SODIUM INJ 40 MG/0.4 ML DISP.SYRIN SUBCUT SCH (09:23)
[2018-04-17] MEDS: NYSTATIN 500000 UNIT/5 ML UDCUP PO SCH (09:29)
[2018-04-17] MEDS: LITHIUM CARBONATE 300 MG CAPSULE PO SCH (10:44)
[2018-04-17 12:44] VITALS: BP 100/67
[2018-04-17] MEDS ORDERED: LIDOCAINE 2% VISCOUS SOLN 20 ML UDCUP PO PRN (13:03)
--- NOTE | 2018-04-17 13:31 | PDOC DISCHARGE SUMMARY ---
General - Admit/Disc Date/PCP Admission Date/Primary Care Provider: 04/12/18 15:46 LAURA BRAN PA-C Discharge Date: 04/17/18 - Discharge Diagnosis (1) Psoriatic arthritis Is this a current diagnosis for this admission?: Yes (2) Cough Is this a current diagnosis for this admission?: Yes (3) Asthma Is this a current diagnosis for this admission?: Yes (4) Bipolar disorder, unspecified Is this a current diagnosis for this admission?: Yes (5) Moderate asthma with acute exacerbation Is this a current diagnosis for this admission?: Yes (6) Morbid obesity Is this a current diagnosis for this admission?: Yes - Additional Information Resuscitation Status: Full Code Discharge Diet: Cardiac Discharge Activity: Activity As Tolerated Prescriptions: Albuterol Sulfate [Ventolin Hfa 8 gm Mdi (1 Mdi/ER Disp)] 2 puff IH ASDIR PRN #1 inhaler PRN Reason: Clotrimazole [Mycelex 10 mg Rosette] 10 mg PO TID #21 rosette Duloxetine HCl [Cymbalta 30 mg Capsule.dr] 90 mg PO DAILY #90 capsule.dr Furosemide [Lasix 40 mg Tablet] 40 mg PO BID #60 tablet [place] Carbonate [Lithobid 300 mg Capsule] 300 mg PO Q12 30 Days #60 capsule Methylprednisolone [Medrol Dosepack (4 mg/Tab) 21 Tab/Dosepak] 21 tab PO ASDIR PRN #21 dspk PRN Reason: Home Medications: Diazepam 10 mg PO BIDP PRN 02/19/11 Folic Acid 1 mg PO DAILY 02/19/11 Hydroxyzine HCl [Atarax 25 mg Tablet] 25 mg PO DAILYP PRN 02/19/11 Potassium Chloride [Klor-Con 10 Meq Capsule ER] 20 meq PO DAILY 02/19/11 Tizanidine HCl [Zanaflex 4 mg Tablet] 2 mg PO TIDP PRN 02/19/11 Cetirizine HCl [Zyrtec 10 mg Tablet] 10 mg PO DAILY 05/30/13 Sucralfate [Carafate 1 gm Tablet] 1 gm PO DAILYP PRN 05/30/13 Amitriptyline HCl [Elavil 25 mg Tablet] 25 mg PO DAILY 04/12/18 Cyanocobalamin (Vitamin B-12) [Vitamin B-12 Inj 1000 Mcg/1 ml Vial] 1,000 mcg IM .MONTHLY 04/12/18 Duloxetine HCl [Cymbalta] 60 mg PO BID 04/12/18 Ergocalciferol (Vitamin D2) [Drisdol] 50,000 unit PO TU@10 04/12/18 Fluticasone/Salmeterol [Advair 500-50 Diskus 14 Dose/Diskus] 1 inh IH Q12H 04/12/18 Lansoprazole [Prevacid] 30 mg PO DAILY 04/12/18 Methotrexate Sodium/Pf [Methotrexate 25 mg/ml Vial] 0.6 ml IJ MO@22 04/12/18 Montelukast Sodium [Singulair 10 mg Tablet] 10 mg PO QHS 04/12/18 Quetiapine Fumarate 300 mg PO DAILY 04/12/18 Tiotropium [place] [Spiriva Handihaler 5 Cap/Kit (18 Mcg/Cap)] 1 cap IH DAILY 04/12/18 Albuterol Sulfate [Ventolin Hfa 8 gm Mdi (1 Mdi/ER Disp)] 2 puff IH ASDIR PRN #1 inhaler 04/17/18 Clotrimazole [Mycelex 10 mg Rosette] 10 mg PO TID #21 rosette 04/17/18 Duloxetine HCl [Cymbalta 30 mg Capsule.] 90 mg PO DAILY #90 capsule.dr 04/17/18 Furosemide [Lasix 40 mg Tablet] 40 mg PO BID #60 tablet 04/17/18 [place] Carbonate [Lithobid 300 mg Capsule] 300 mg PO Q12 30 Days #60 capsule 04/17/18 Methylprednisolone [Medrol Dosepack (4 mg/Tab) 21 Tab/Dosepak] 21 tab PO ASDIR PRN #21 dspk 04/17/18 History of Present Illness History of Present Illness: July DIONICIO is a 42 year old female with past medical hx of bipolar, anxiety, fibromyalgia, current smoker (21ppd hx), fatty liver disease, idiopathic angioedema, psoriatic arthritis, and dx of asthma in 2018 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 She reports on going cough, sputum production, and sob x 1-2 months. she ahs r ecieved doxy and omnicef during that time, as well as several courses of steroids. She reports subjective fever. She denies getting the flu shot this year. She also denies past dx of COPD. She has been administering nebulizers tx to herself at home over the past month as well/ She reportedly follows with pulmonology, rheum, and PCP as instructed. She has no new symptoms during my evaluation, but is focused on getting home meds and seems anxious. Hospital Course Hospital Course: pneumonia/asthma exacerbation/ COPD (not formally diagnosed. Needs repeat outpatient PFTs) -Pneumonia originally diagnosed on chest x-ray, seem to be an over read, as white blood cell count trended down, and repeat chest x-ray showed no pneumonia. -Asthma exacerbation seem to be the most likely cause of the shortness of breath. It seemed to be related to fluid overload due to excessive hydration and high salt intake. Patient reported drinking 8 bottles of water prior to bed, in addition to 8 bottles of water throughout the day, in addition to other fluids. -COPD has not been diagnosed, but given patient's history of smoking, and she is a current smoker she has been recommended to follow-up with a credit union teller for PFTs. -She was also provided supplemental care with Xopenex, duo nebs, Singulair, oxygen, Tessalon Perles and Mucinex. SOB -Improved with IV Lasix 40 mg twice daily. Patient will be discharged on 40 mg p.o. twice daily. Echocardiogram was obtained while inpatient. However the results are unavailable at this time. Patient plans to have her primary care physician's office follow-up on the results this week. She has been informed that this could be a symptom of early stage heart failure. EF is not available at this time. Due to her blood pressure she would not be an FRANCINE/ARB candidate. Consideration can be given a beta-jenniffer once echo results are available, and patient's Lasix is at appropriate dose. Patient has been instructed to have her primary care physician follow-up on her kidney function as she is now on increased dose of Lasix. Borderline prolonged qti 02/2018 -WNL on 04/12/18 Thrush -Started on oral nystatin, however switched to oral clotrimazole per patient request. Continue 7-day course on discharge. She was provided viscous lidoc amy for pain relief. Psoriatic arthritis -remicade infusions o/p every 6 weeks and intermittent oral steroid use -follows with rheum -Chronically immunocompromised bipolar/Anxiety -continue qhs seroquel -At a dose of 450 mg bid the patient's lithium level is within normal limits (0.6). However due to the risk of toxicity when using Lasix we will lower her lithium to 300 mg bid. -anxiety seems to also be playing a role in her SOB -cymbalta lowered to 90mg qam -continue prn vistaril -patient has been explained black box warning of benzo + narcotic use -Trial Ativan IV for anxiety was given. Patient reported ineffective. Hypotension -Suspect borderline hypertension was mostly related to morphine. Propranolol was stopped on admission. Patient remained asymptomatic. Pain (arthritis/chronic) -Controlled with IV Toradol for 3 days, and as needed morphine per protocol Hyperkalemia -Resolved with Lasix and Kayexalate. Morbid obesity -BMI 51.1. Education provided. Status post gastric bypass surgery > years ago.Complicates all conditions dvt prophylaxis: teds, lovenox Physical Exam Vital Signs: Temp Pulse Resp BP Pulse Ox 98.2 F 107 H 16 100/67 93 04/17/18 12:00 04/17/18 12:00 04/17/18 12:00 04/17/18 12:00 04/17/18 12:00 Pulse Oximeter Continuous Start: 04/12/18 17:14 Freq: RTQ4 Status: Active Protocol: Document 04/17/18 08:54 HCR (Rec: 04/17/18 12:54 HCR [id number]) Pulse Oximetry Assessment Oxygen Saturation (92-100) 94 Oxygen Flow Rate (L/min) 2 Oxygen Delivery Method Nasal Cannula Equipment Usage Equipment in Use Continuous SpO2 Machine # 5 Intake & Output 04/16/18 04/17/18 04/18/18 06:59 06:59 06:59 Intake Total 540 1933 Output Total 1000 Balance -460 1933 Weight 145.9 kg 142.8 kg General appearance: PRESENT: no acute distress, cooperative, disheveled, morbidly obese Head exam: PRESENT: atraumatic, normocephalic Eye exam: PRESENT: conjunctiva pink, EOMI, PERRLA. ABSENT: scleral icterus Ear exam: PRESENT: normal external ear exam Mouth exam: PRESENT: moist Respiratory exam: PRESENT: clear to auscultation raza - No wheeze, rhonchi appreciated. No significant crackles. Cardiovascular exam: PRESENT: RRR, +S1, +S2 Pulses: PRESENT: normal dorsalis pedis pul Vascular exam: PRESENT: normal capillary refill GI/Abdominal exam: PRESENT: normal bowel sounds, soft. ABSENT: distended, guarding, mass, organolmegaly, rebound, tenderness Rectal exam: PRESENT: deferred Musculoskeletal exam: PRESENT: full ROM, normal inspection Neurological exam: PRESENT: alert, awake, oriented to person, oriented to place, oriented to time, oriented to situation, CN II-XII grossly intact. ABSENT: earl r sensory deficit Psychiatric exam: PRESENT: anxious, normal mood Results Laboratory Results: 04/16/18 03:53 04/16/18 03:53 04/12/18 04/12/18 04/12/18 11:47 11:47 12:53 Creatine Kinase Cancelled Cancelled Troponin I < 0.012 04/12/18 13:36 Creatine Kinase 493 H Troponin I Impressions: Chest X-Ray 04/16/18 08:00 IMPRESSION: NO ACUTE RADIOGRAPHIC FINDING IN THE CHEST. Qualifiers - * PATIENT BEING DISCHARGED WITH ANY OF THE FOLLOWING DIAGNOSIS: No VTE patient discharged on overlapping Therapy?: No Reason(s) for not prescribing Overlap Therapy:: Not indicated Plan Discharge Plan: Take oral prednisone as instructed. Use as needed albuterol inhaler as instructed. Continue with p.o. Lasix as instructed. Follow-up with cardiology, pulmonology, and your primary care physician all within 7 to 10 days of discha rge. Time Spent: Greater than 30 Minutes
[2018-04-17 13:56] LABS: ALANINE AMINOTRANSFERASE 35 U/L (9-52); ALBUMIN 3.6 g/dL (3.5-5.0); ALKALINE PHOSPHATASE 45 U/L (38-126); ANION GAP 9 (5-19); ASPARTATE AMINO TRANSFERASE 19 U/L (14-36); BILIRUBIN,DIRECT 0.3 mg/dL (0.0-0.4); BILIRUBIN,TOTAL 0.5 mg/dL (0.2-1.3); BLOOD UREA NITROGEN 35 mg/dL (7-20); CALCIUM 9.1 mg/dL (8.4-10.2); CARBON DIOXIDE 31 mmol/L (22-30); CHLORIDE 96 mmol/L (98-107); GLUCOSE 102 mg/dL (75-110); POTASSIUM 4.1 mmol/L (3.6-5.0); SODIUM 135.7 mmol/L (137-145); TOTAL PROTEIN 6.2 g/dL (6.3-8.2)
[2018-04-17] MEDS ORDERED: METHYLPREDNISOLONE INJ 40 MG/1 ML SDV IV SCH (15:00)
[2018-04-17] MEDS ORDERED: CLOTRIMAZOLE 10 MG TROCHE PO SCH (15:00)
[2018-04-17 15:05] LABS: HEMATOCRIT 46.7 % (36.0-47.0); MEAN CORPUSCULAR HEMOGLOBIN 29.6 pg (27.0-33.4); MEAN CORPUSCULAR VOLUME 90 fl (80-97); PLATELET COUNT 297 10^3/uL (150-450); RED CELL DISTRIBUTION WIDTH 14.7 % (11.5-14.0)
[2018-04-17 15:07] LABS: HEMOGLOBIN 15.4 g/dL (12.0-15.5)
[2018-04-17] MEDS: ACETAMINOPHEN 325 MG TABLET PO PRN (15:30)
[2018-04-17] MEDS: BENZONATATE 100 MG CAPSULE PO PRN (15:30)
[2018-04-17] MEDS ORDERED: PREDNISONE 20 MG TABLET PO ONE (16:30)
[2018-04-19] MEDS ORDERED: ERGOCALCIFEROL (VITAMIN D2) 50000 UNIT (1.25 MG) CAPSULE PO SCH (10:00)
--- NOTE | 2018-04-19 20:41 | XCELERA REPORT ---
[address] [address] Transthoracic Echocardiogram Report Name: DIONICIO July Age: 42 yrs Gender: Female : 1975 Patient Status: Inpatient Patient Location: [address] [place] [address] Study Date: 04/13/2018 03:26 PM Procedure: A two-dimensional transthoracic echocardiogram with color flow and Doppler was performed. The study was technically difficult with many images being suboptimal in quality. Reason For Study: NARVAEZ, SOB, PND History: NARVAEZ, SOB, PND. Ordering Physician: CONSUELO MORTON Performed By: Kendra Storm Interpretation Summary The left ventricle is normal in size. There is normal left ventricular wall thickness. LV EF is 65% Left ventricular systolic function is normal. Doppler measurements suggest normal left ventricular diastolic function The left ventricular wall motion is normal. There is no thrombus. The right ventricle is not well visualized secondary to technical limitations The left atrium is mildly dilated. There is no evidence of mitral valve prolapse. There is no mitral valve stenosis. There is no mitral regurgitation noted. There is no aortic valve stenosis There is no LVOT obstruction. No aortic regurgitation is present. Tricuspid valve not well interogted.Probably trace to mild TR.RVSP is 55 mm of Hg , with RA mean of 10. There is moderate pulmonary hypertension by echo The pulmonic valve is not well visualized. The aortic root is not well visualized but is probably normal size. There is no pericardial effusion. MMode/2D Measurements & Calculations RVDd: 4.0 cm LVIDd: 5.4 cm FS: 41.8 % Ao root diam: 3.2 cm IVSd: 1.0 cm LVIDs: 3.1 cm EDV(Teich): 142.1 ml Ao root area: 7.8 cm2 LVPWd: 1.0 cm ESV(Teich): 39.4 ml EF(Teich): 72.3 % Doppler Measurements & Calculations MV E max john: MV dec slope: Ao V2 max: LV V1 max P.7 cm/sec 128.1 cm/sec 4.6 mmHg MV A max john: 431.3 cm/sec2 Ao max PG: LV V1 max: 70.6 cm/sec MV dec time: 0.19 sec 6.6 mmHg 107.7 cm/sec MV E/A: 1.1 PA V2 max: TR max john: 81.7 cm/sec 334.3 cm/sec PA max P.7 mmHgTR max P.7 mmHg Left Ventricle The left ventricle is normal in size. There is normal left ventricular wall thickness. LV EF is 65%. Left ventricular systolic function is normal. Doppler measurements suggest normal left ventricular diastolic function. The left ventricular wall motion is normal. There is no thrombus. Right Ventricle The right ventricle is not well visualized secondary to technical limitations. Atria The right atrium is normal. The left atrium is mildly dilated. Mitral Valve There is no evidence of mitral valve prolapse. There is no mitral valve stenosis. There is no mitral regurgitation noted. Aortic Valve There is no aortic valvular vegetation. There is no aortic valve stenosis. There is no LVOT obstruction. No aortic regurgitation is present. Tricuspid Valve There is no tricuspid stenosis. Tricuspid valve not well interogted.Probably trace to mild TR.RVSP is 55 mm of Hg , with RA mean of 10. There is moderate pulmonary hypertension by echo. Pulmonic Valve The pulmonic valve is not well visualized. Great Vessels The aortic root is not well visualized but is probably normal size. Effusions There is no pericardial effusion. : CONSUELO MORTON > Sharyn Camara
[2018-04-29] MEDS ORDERED: CYANOCOBALAMIN (VITAMIN B-12) INJ 1000 MCG/1 ML VIAL IM SCH (19:30)
== END 2018-04-17 16:15 | disposition home or self-care (01) | DRG 203 ==
LOC: ER 11:12 → EH 15:46 → 4N 16:57
PROVIDERS: ADMIT Hospitalist; ATTEND Hospitalist
DX: J45.41 Moderate persistent asthma with (acute) exacerbation (principal); L40.50 Arthropathic psoriasis, unspecified; F31.9 Bipolar disorder, unspecified; F41.9 Anxiety disorder, unspecified; M79.7 Fibromyalgia; K76.0 Fatty (change of) liver, not elsewhere classified; F17.210 Nicotine dependence, cigarettes, uncomplicated; F43.10 Post-traumatic stress disorder, unspecified; Z90.49 Acquired absence of other specified parts of digestive tract; Z98.84 Bariatric surgery status; Z98.51 Tubal ligation status; Z79.899 Other long term (current) drug therapy; Z88.2 Allergy status to sulfonamides; Z88.8 Allergy status to other drugs, medicaments and biological substances
CPT/HCPCS: 36415; 36600; 71045; 71046; 80048; 80053; 80061; 80178; 81001; 82550; 82803; 83036; 83735; 84484; 85025; 85027; 87040; 87070; 87086; 87205; 90471; 90686; 93005; 93010; 93306; 94640; 94762; 96374; 96375; 99285; G0008; J1650; J1885; J1940; J2060; J2270; J2405; J2930; J3490; J7512; J7620

== ENCOUNTER → 2018-05-06 | Outpatient (CLI) | payer OTHER ==
[2018-05-06 13:46] LABS: ABSOLUTE EOSINOPHILS # (AUTO) 0.3 10^3/uL (0.0-0.6); ABSOLUTE LYMPHOCYTES (AUTO) 2.5 10^3/uL (0.5-4.7); ABSOLUTE MONOCYTES (AUTO) 0.4 10^3/uL (0.1-1.4); ABSOLUTE NEUT (AUTO) 2.1 10^3/uL (1.7-8.2); BASOPHILS % (AUTO) 0.2 % (0-2); HEMATOCRIT 36.3 % (36.0-47.0); HEMOGLOBIN 12.1 g/dL (12.0-15.5); LYMPHOCYTES % (AUTO) 46.7 % (13-45); MEAN CORPUSCULAR HEMOGLOBIN 29.2 pg (27.0-33.4); MEAN CORPUSCULAR HGB CONC 33.3 g/dL (32.0-36.0); MEAN CORPUSCULAR VOLUME 88 fl (80-97); PLATELET COUNT 251 10^3/uL (150-450); RED BLOOD COUNT 4.13 10^6/uL (3.72-5.28); RED CELL DISTRIBUTION WIDTH 14.4 % (11.5-14.0); SEGMENTED NEUTROPHILS % (AUTO) 40.1 % (42-78); TOTAL CELLS COUNTED % (AUTO) 100 %; WHITE BLOOD COUNT 5.3 10^3/uL (4.0-10.5)
[2018-05-06 14:06] LABS: BLOOD UREA NITROGEN 9 mg/dL (7-20); CALCIUM 8.3 mg/dL (8.4-10.2); CARBON DIOXIDE 29 mmol/L (22-30); CHLORIDE 107 mmol/L (98-107); GLUCOSE 87 mg/dL (75-110); POTASSIUM 4.2 mmol/L (3.6-5.0); SODIUM 139.1 mmol/L (137-145)
[2018-05-06 14:20] LABS: ANION GAP 3 (5-19)
== END ==
LOC: OD 13:07
PROVIDERS: ATTEND Internal Medicine Critical Care Medicine
DX: J45.909 Unspecified asthma, uncomplicated (principal); R05 Cough; K21.9 Gastro-esophageal reflux disease without esophagitis; E66.01 Morbid (severe) obesity due to excess calories; Z72.0 Tobacco use
CPT/HCPCS: 36415; 80048; 83880; 85025

== ENCOUNTER → 2018-09-16 | Outpatient (CLI) | payer OTHER ==
--- NOTE | 2018-09-16 10:57 | WOMENS IMAGING REPORT ---
EXAM DESCRIPTION: 3D SCREENING MAMMO BILAT COMPLETED DATE/TIME: 09/16/2018 10:19 am REASON FOR STUDY: Z12.31 ROUTINE 3D BILATERAL SCREENING Z12.31 ENCNTR SCREEN MAMMOGRAM FOR MALIGNAN T NEOPLASM OF KAY COMPARISON: 2017 EXAM PARAMETERS: Standard craniocaudal and mediolateral oblique views of each breast recorded using digital acquisition. Read with the assistance of CAD. .[facility] - R2 [employer] Version 9.2 LIMITATIONS: None. FINDINGS: Findings present which are benign by mammographic criteria. No suspicious masses, calcifi cations or architectural distortion. Pertinent benign findings: Stable calcifications. Benign mammographic findings may include one or more of the following: Smooth masses, popcorn/rim/co arse calcifications, asymmetries, post-procedure changes, and lesions with long-standing stability. IMPRESSION: ASSESSMENT: BENIGN MAMMOGRAPHIC FINDINGS. BIRADS 2 BREAST DENSITY: b. There are scattered areas of fibroglandular density. BIRAD: 2 BENIGN FINDING(S) RECOMMENDATION: ROUTINE SCREENING COMMENT: The patient has been notified of the results by letter per SA requirements. Additional no tification policies are in place for contacting patient with suspicious or incomplete findings. Quality ID #[id number]: The [employer] recommends an annual screening mammogram for women aged 40 years or over. This facility utilizes a reminder system to ensure that all patients receive reminder letters, and/or direct phone calls for appointments. This includes reminders for routine scr eening mammograms, diagnostic mammograms, or other Breast Imaging Interventions when appropriate. Th is patient will be placed in the appropriate reminder system. TECHNICAL DOCUMENTATION: FINDING NUMBER: (1) ASSESSMENT: (1) JOB ID: [id number] [employer]- All Rights Reserved Reading location - IP/workstation name: [email or web address]
== END ==
LOC: WI 09:57
PROVIDERS: ATTEND Physician Assistant
DX: Z12.31 Encounter for screening mammogram for malignant neoplasm of breast (principal)
CPT/HCPCS: 77063; 77067

== ENCOUNTER 2018-12-14 15:21 | Emergency (ER) | payer OTHER ==
[2018-12-14 15:28] VITALS: BP 132/100
[2018-12-14] MEDS ORDERED: ASPIRIN 81 MG TABLET, CHEWABLE PO ONE (15:46)
[2018-12-14] MEDS ORDERED: ONDANSETRON 4 MG TAB.RAPDIS PO ONE (15:46)
--- NOTE | 2018-12-14 15:50 | ER Document Report ---
ED Medical Screen (RME) - General Chief Complaint: Chest Pain Stated Complaint: CHEST PAIN Time Seen by Provider: 12/14/18 15:41 Primary Care Provider: LAURA BRAN PA-C [Primary Care Provider] - Follow up as needed Mode of Arrival: Wheelchair Information source: Patient Notes: This 43-year-old female presents the emergency department with left-sided chest pain radiating up to her shoulder and down her back in her left arm. Reports symptoms started this morning. Reports that she has been nauseated and vomiting several times. Denies history of cardiac disease but reports her mother from a heart attack. Patient reports she has a history of anxiety and depression. EKG shows SR I have greeted and performed a rapid initial assessment of this patient. A comprehensive ED assessment and evaluation of the patient, analysis of test results and completion of the medical decision making process will be conducted by additional ED providers. Dictation of this chart was performed using voice recognition software; therefore, there may be some unintended grammatical errors. TRAVEL OUTSIDE OF THE [place] IN LAST 30 DAYS: No - Related Data Allergies/Adverse Reactions: Sulfa (Sulfonamide Antibiotics) Allergy (Unknown, Verified 12/14/18 15:22) hydromorphone HCl [From Dilaudid] Allergy (Verified 12/14/18 15:22) Hallucinations Past Medical History - Social History Family history: None - Past Medical History Cardiac Medical History: Denies: Hx Coronary Artery Disease, Hx Heart Attack, Hx Hypertension Pulmonary Medical History: Reports: Hx Asthma, Hx Bronchitis, Hx Pneumonia Denies: Hx COPD, Hx Tuberculosis Neurological Medical History: Reports: Hx Seizures - one time 2003, NO CURRENT MEDS. Denies: Hx Cerebrovascular Accident Renal/ Medical History: Denies: Hx Peritoneal Dialysis GI Medical History: Reports: Hx Gastroesophageal Reflux Disease Musculoskeltal Medical History: Reports Hx Arthritis, Reports Hx Fibromyalgia, Denies Hx Multiple Sclerosis, Denies Hx Muscular Dystrophy Skin Medical History: Reports Hx MRSA, Reports Hx Psoriasis Psychiatric Medical History: Reports: Hx Anxiety, Hx Bipolar Disorder, Hx Depression, Hx Post Traumatic Stress Disorder Denies: Hx Dementia, Hx Schizophrenia Traumatic Medical History: Denies: Hx Fractures Past Surgical History: Reports: Hx Abdominal Surgery - hernia repair, endoscopy, Hx Appendectomy, Hx Section - 2, Hx Cholecystectomy, Hx Gastric Bypass Surgery, Hx Tonsillectomy, Hx Tubal Ligation. Denies: Hx Bowel Surgery, Hx Coronary Artery Bypass Graft, Hx Herniorrhaphy, Hx Hysterectomy, Hx Mastectomy, Hx Pacemaker - Immunizations Immunizations up to date: No Hx Diphtheria, Pertussis, Tetanus Vaccination: Yes Physical Exam - Vital signs Vitals: Temp Pulse BP Pulse Ox 98.1 F 96 132/100 H 95 12/14/18 15:27 12/14/18 15:27 12/14/18 15:27 12/14/18 15:27 Course - Vital Signs Vital signs: Temp Pulse Resp BP Pulse Ox 98.1 F 96 132/100 H 95 12/14/18 15:27 12/14/18 15:27 12/14/18 15:27 12/14/18 15:27 Doctor's Discharge - Discharge Referrals: LAURA BRAN PA-C [Primary Care Provider] - Follow up as needed
--- NOTE | 2018-12-14 16:12 | RADIOLOGY REPORT (SQ) ---
EXAM DESCRIPTION: CHEST 2 VIEWS COMPLETED DATE/TIME: 12/14/2018 3:59 pm REASON FOR STUDY: chest pain COMPARISON: 04/16/2018 EXAM PARAMETERS: NUMBER OF VIEWS: two views TECHNIQUE: Digital Frontal and Lateral radiographic views of the chest acquired. RADIATION DOSE: NA LIMITATIONS: none FINDINGS: LUNGS AND PLEURA: There is stable elevation of the right hemidiaphragm. No consolidation or effusions. MEDIASTINUM AND HILAR STRUCTURES: No masses or contour abnormalities. HEART AND VASCULAR STRUCTURES: Heart normal size. No evidence for failure. BONES: No acute findings. HARDWARE: Spmasw-N-Nmsp remains in place. OTHER: No other significant finding. IMPRESSION: Stable elevation of the right hemidiaphragm. No acute findings. TECHNICAL DOCUMENTATION: JOB ID: [id number] [employer]- All Rights Reserved Reading location - IP/workstation name: [email or web address]
[2018-12-14 16:27] LABS: APPEARANCE,URINE CLEAR; BILIRUBIN,URINE NEGATIVE (NEGATIVE); COLOR,URINE YELLOW; GLUCOSE, URINE NEGATIVE (NEGATIVE); KETONES,URINE TRACE mg/dL (NEGATIVE); LEUKOCYTE ESTERASE,URINE NEGATIVE (NEGATIVE); NITRITE,URINE NEGATIVE (NEGATIVE); PROTEIN,URINE NEGATIVE (NEGATIVE); URINE SPECIFIC GRAVITY 1.009; UROBILINOGEN,URINE NEGATIVE mg/dL (<2.0)
[2018-12-14] MEDS ORDERED: KETOROLAC TROMETHAMINE INJ/PF 30 MG/1 ML SDV IV ONE (17:07)
[2018-12-14 17:11] LABS: ABSOLUTE BASOPHILS # (AUTO) 0.1 10^3/uL (0.0-0.2); ABSOLUTE LYMPHOCYTES (AUTO) 1.8 10^3/uL (0.5-4.7); ABSOLUTE MONOCYTES (AUTO) 0.3 10^3/uL (0.1-1.4); ABSOLUTE NEUT (AUTO) 5.7 10^3/uL (1.7-8.2); BASOPHILS % (AUTO) 0.9 % (0-2); EOSINOPHILS % (AUTO) 0.6 % (0-6); HEMATOCRIT 39.5 % (36.0-47.0); LYMPHOCYTES % (AUTO) 22.5 % (13-45); MEAN CORPUSCULAR HEMOGLOBIN 29.1 pg (27.0-33.4); MEAN CORPUSCULAR HGB CONC 32.8 g/dL (32.0-36.0); MEAN CORPUSCULAR VOLUME 89 fl (80-97); MONOCYTES % (AUTO) 3.8 % (3-13); PLATELET COUNT 302 10^3/uL (150-450); RED BLOOD COUNT 4.46 10^6/uL (3.72-5.28); RED CELL DISTRIBUTION WIDTH 18.3 % (11.5-14.0); SEGMENTED NEUTROPHILS % (AUTO) 72.2 % (42-78); TOTAL CELLS COUNTED % (AUTO) 100 %; WHITE BLOOD COUNT 7.8 10^3/uL (4.0-10.5)
[2018-12-14] MEDS ORDERED: IPRATROPIUM/ALBUTEROL 0.5-2.5 MG/3 ML AMPUL NEB ONE (17:12)
[2018-12-14] MEDS ORDERED: ALBUTEROL SULFATE 0.083% NEB 2.5 MG/3 ML AMPUL NEB ONE (17:12)
--- NOTE | 2018-12-14 17:12 | ER Document Report ---
ED General - General Chief Complaint: Chest Pain Stated Complaint: CHEST PAIN Time Seen by Provider: 12/14/18 15:41 Primary Care Provider: LAURA BRAN PA-C [NO LOCAL MD] - Follow up as needed Mode of Arrival: Wheelchair TRAVEL OUTSIDE OF THE [place] IN LAST 30 DAYS: No - HPI Notes: Patient is a 43-year-old female that presents to the emergency department for chief complaint of chest pain. Patient states this morning she had a pain that started on her left substernal region and radiated up into her left neck and left shoulder. She also reports associated nausea and vomiting on multiple occasions today. Patient states she has also had a cough and congestion today. She does have a history of asthma but has not used her albuterol inhaler today. She does not wear oxygen at home. She states she had a normal stress test 3 or 4 years ago and denies history of VA. Patient's mother has significant cardiac disease. Patient denies any history of hypertension, diabetes or hyperlipidemia. Past Medical History: Asthma, fibromyalgia, psoriatic arthritis, bipolar, idiopathic angioedema Past Surgical History: Gastric bypass Social History: Reviewed in chart Family History: Reviewed and noncontributory for presenting illness Allergies: Reviewed, see documented allergy list. REVIEW OF SYSTEMS: CONSTITUTIONAL : No fever No chills No diaphoresis No recent illness EENT: No vision changes congestion No sore throat CARDIOVASCULAR: chest pain No palpitations RESPIRATORY: shortness of breath cough No difficulty breathing GASTROINTESTINAL: No abdominal pain nausea vomiting No diarrhea GENITOURINARY: No dysuria No hematuria No difficulty urinating MUSCULOSKELETAL: No back pain No leg pain arm pain SKIN: No rashes No lesions LYMPHATIC: No swollen, enlarged glands. NEUROLOGICAL: No lightheadedness No headache No weakness No paresthesias PSYCHIATRIC: No anxiety No depression PHYSICAL EXAMINATION: Vital signs reviewed, nursing noted reviewed. GENERAL: Well-appearing, obese and in no acute distress. HEAD: Atraumatic, normocephalic. EYES: Eyes appear normal, extraocular movements intact, sclera anicteric, conjunctiva are normal. ENT: nares patent, oropharynx clear without exudates. Moist mucous membranes. NECK: Left-sided neck tenderness in the paraspinal and sternoclavicular muscle. Normal range of motion, supple without lymphadenopathy LUNGS: Breath sounds diminished with wheezing bilaterally, symmetric. No tachypnea or accessory muscle use HEART: Regular rate and rhythm without murmurs ABDOMEN: Soft, nontender, normoactive bowel sounds. No rebound, guarding, or rigidity. No masses appreciated. EXTREMITIES: Left shoulder tenderness to palpation and painful range of motion, good passive range of motion. trace pretibial edema bilaterally, symmetric. NEUROLOGICAL: No focal neurological deficits. Moves all extremities spontaneously Motor and sensory grossly intact on exam. PSYCH: Anxious mood, normal affect. SKIN: Warm, Dry, normal turgor, no rashes or lesions noted on exposed skin - Related Data Allergies/Adverse Reactions: Sulfa (Sulfonamide Antibiotics) Allergy (Unknown, Verified 12/14/18 15:22) hydromorphone HCl [From Dilaudid] Allergy (Verified 12/14/18 15:22) Hallucinations Past Medical History - General Information source: Patient - Social History Smoking Status: Current Every Day Smoker Chew tobacco use (# tins/day): No Frequency of alcohol use: None Drug Abuse: None Family History: Reviewed & Not Pertinent Patient has suicidal ideation: No Patient has homicidal ideation: No - Past Medical History Cardiac Medical History: Denies: Hx Coronary Artery Disease, Hx Heart Attack, Hx Hypertension Pulmonary Medical History: Reports: Hx Asthma, Hx Bronchitis, Hx Pneumonia Denies: Hx COPD, Hx Tuberculosis Neurological Medical History: Reports: Hx Seizures - one time 2003, NO CURRENT MEDS. Denies: Hx Cerebrovascular Accident Renal/ Medical History: Denies: Hx Peritoneal Dialysis GI Medical History: Reports: Hx Gastroesophageal Reflux Disease Musculoskeletal Medical History: Reports Hx Arthritis, Reports Hx Fibromyalgia, Denies Hx Multiple Sclerosis, Denies Hx Muscular Dystrophy Skin Medical History: Reports Hx MRSA, Reports Hx Psoriasis Psychiatric Medical History: Reports: Hx Anxiety, Hx Bipolar Disorder, Hx Depression, Hx Post Traumatic Stress Disorder Denies: Hx Dementia, Hx Schizophrenia Traumatic Medical History: Denies: Hx Fractures Past Surgical History: Reports: Hx Abdominal Surgery - hernia repair, endoscopy, Hx Appendectomy, Hx Section - 2, Hx Cholecystectomy, Hx Gastric Bypass Surgery, Hx Tonsillectomy, Hx Tubal Ligation. Denies: Hx Bowel Surgery, Hx Coronary Artery Bypass Graft, Hx Herniorrhaphy, Hx Hysterectomy, Hx Mastectomy, Hx Pacemaker - Immunizations Immunizations up to date: No Hx Diphtheria, Pertussis, Tetanus Vaccination: Yes Physical Exam - Vital signs Vitals: Temp Pulse BP Pulse Ox 98.1 F 96 132/100 H 95 12/14/18 15:27 12/14/18 15:27 12/14/18 15:27 12/14/18 15:27 Course - Re-evaluation Re-evalutation: 12/14/18 17:10 Vitals reviewed. Nursing notes reviewed. Patient SPO2 was 89% on room air when I entered the room. She was placed on 2 L nasal cannula oxygen and will be given aerosols for her asthma. She does have wheezing on auscultation bilaterally. Her chest x-ray shows no pneumothorax, pneumonia or other acute process. Patient was given aspirin for her chest pain. Her pain is very reproducible with palpation over anterior left chest and neck. She was given Toradol for pain. Patient does appear very anxious but is in no acute respiratory distress. Chest X-Ray 12/14/18 15:47 IMPRESSION: Stable elevation of the right hemidiaphragm. No acute findings. 12/14/18 18:56 The remainder of patient's work-up is unremarkable. Her troponin is negative. Patient has a heart score of 1 and I am not clinically suspicious that this is A CS given how reproducible her pain is with palpation and movement. Her pain is also been constant throughout the day and if it was anginal I would suspect the troponin would have begun elevating at this point. Patient is PERC criteria negative and I do not suspect pulmonary embolism. After receiving albuterol and DuoNeb her SPO2 has increased to 95% on room air and her lung sounds are clear. Patient has not been using her albuterol inhaler and I encouraged her to begin using 2 puffs every 4 hours. She is coughing and some of her chest pain may be chest wall strain secondary to her coughing. She is now complaining of tingling on the lateral aspect of her left foot and on the top of her right foot as well as on her right flank. Patient's pain is migrating and nonspecific. She does have history of fibromyalgia and I encouraged her to follow with her primary care provider for reevaluation in the next few days. Patient at this point will be given morphine for further pain control and discharged home in stable condition. Laboratory 12/14/18 12/14/18 12/14/18 16:09 16:46 16:46 WBC 7.8 RBC 4.46 Hgb 13.0 Hct 39.5 MCV 89 MCH 29.1 MCHC 32.8 RDW 18.3 H Plt Count 302 Lymph % (Auto) 22.5 [place] % (Auto) 3.8 Eos % (Auto) 0.6 Baso % (Auto) 0.9 Absolute Neuts (auto) 5.7 Absolute Lymphs (auto) 1.8 Absolute Monos (auto) 0.3 Absolute Eos (auto) 0.0 Absolute Basos (auto) 0.1 Seg Neutrophils % 72.2 Sodium 138.2 Potassium 4.8 Chloride 108 H Carbon Dioxide 23 Anion Gap 7 BUN 15 Creatinine 0.72 Est GFR ( Amer) > 60 Est GFR (MDRD) Non-Af > 60 Glucose 108 Calcium 9.0 Total Bilirubin 0.7 Direct Bilirubin 0.5 H Neonat Total Bilirubin Not Reportable Neonat Direct Bilirubin Not Reportable Neonat Indirect Bili Not Reportable AST 83 H ALT 87 Alkaline Phosphatase 76 Troponin I Total Protein 7.1 Albumin 4.0 Lipase 39.4 Urine Color YELLOW Urine Appearance CLEAR Urine pH 6.0 Ur Specific [place] 1.009 Urine Protein NEGATIVE Urine Glucose (UA) NEGATIVE Urine Ketones TRACE H Urine Blood NEGATIVE Urine Nitrite NEGATIVE Urine Bilirubin NEGATIVE Urine Urobilinogen NEGATIVE Ur Leukocyte Esterase NEGATIVE Urine WBC (Auto) 0 Urine RBC (Auto) 0 Urine Bacteria (Auto) TRACE Squamous Epi Cells Auto 4 Urine Mucus (Auto) RARE Urine Ascorbic Acid NEGATIVE Urine HCG, Qual NEGATIVE 12/14/18 16:46 WBC RBC Hgb Hct MCV MCH MCHC RDW Plt Count Lymph % (Auto) [place] % (Auto) Eos % (Auto) Baso % (Auto) Absolute Neuts (auto) Absolute Lymphs (auto) Absolute Monos (auto) Absolute Eos (auto) Absolute Basos (auto) Seg Neutrophils % Sodium Potassium Chloride Carbon Dioxide Anion Gap BUN Creatinine Est GFR ( Amer) Est GFR (MDRD) Non-Af Glucose Calcium Total Bilirubin Direct Bilirubin Neonat Total Bilirubin Neonat Direct Bilirubin Neonat Indirect Bili AST ALT Alkaline Phosphatase Troponin I < 0.012 Total Protein Albumin Lipase Urine Color Urine Appearance Urine pH Ur Specific [place] Urine Protein Urine Glucose (UA) Urine Ketones Urine Blood Urine Nitrite Urine Bilirubin Urine Urobilinogen Ur Leukocyte Esterase Urine WBC (Auto) Urine RBC (Auto) Urine Bacteria (Auto) Squamous Epi Cells Auto Urine Mucus (Auto) Urine Ascorbic Acid Urine HCG, Qual Chest X-Ray 12/14/18 15:47 IMPRESSION: Stable elevation of the right hemidiaphragm. No acute findings. - Vital Signs Vital signs: Temp Pulse Resp BP Pulse Ox 98.1 F 96 132/100 H 95 12/14/18 15:27 12/14/18 15:27 12/14/18 15:27 12/14/18 15:27 - Laboratory Result Diagrams: 12/14/18 16:46 12/14/18 16:46 Laboratory results interpreted by me: 12/14/18 12/14/18 12/14/18 16:09 16:46 16:46 RDW 18.3 H Chloride 108 H Direct Bilirubin 0.5 H AST 83 H Urine Ketones TRACE H - EKG Interpretation by Me Additional EKG results interpreted by me: 12/14/18 19:00 Interpreted by myself 1531: Normal sinus rhythm, rate 90, normal axis, no STEMI Discharge - Discharge Clinical Impression: Hypertension Qualifiers: Hypertension type: unspecified Qualified Code(s): I10 - Essential (primary) hypertension Asthma exacerbation Qualifiers: Asthma severity: mild Asthma persistence: intermittent Qualified Code(s): J45.21 - Mild intermittent asthma with (acute) exacerbation Chest pain Qualifiers: Chest pain type: unspecified Qualified Code(s): R07.9 - Chest pain, unspecified Condition: Stable Disposition: HOME, SELF-CARE Instructions: Chest Wall Pain ([facility]) Additional Instructions: Please return to the emergency department if you have any worsening, or concern of your symptoms. Please return to the emergency department if you develop chest pain, difficulty breathing, severe abdominal pain, or ongoing vomiting. Please follow-up with your primary care physician in 2-3 days and any other recommended physicians. If prescribed, take all medications as directed. If you have any questions or concerns do not hesitate to return the emergency department for evaluation. Your blood pressure was elevated in the emergency room today and was elevated on previous emergency room visits. You need to do discuss your blood pressure with your primary care doctor and have it rechecked in the primary care setting to confirm hypertension Forms: Elevated Blood Pressure Referrals: LAURA BRAN PA-C [NO LOCAL MD] - Follow up in 3-5 days
[2018-12-14 18:02] LABS: ALKALINE PHOSPHATASE 76 U/L (38-126); ANION GAP 7 (5-19); ASPARTATE AMINO TRANSFERASE 83 U/L (14-36); BILIRUBIN,DIRECT 0.5 mg/dL (0.0-0.4); BILIRUBIN,TOTAL 0.7 mg/dL (0.2-1.3); BLOOD UREA NITROGEN 15 mg/dL (7-20); CARBON DIOXIDE 23 mmol/L (22-30); CHLORIDE 108 mmol/L (98-107); GLUCOSE 108 mg/dL (75-110); POTASSIUM 4.8 mmol/L (3.6-5.0); TOTAL PROTEIN 7.1 g/dL (6.3-8.2)
--- NOTE | 2018-12-14 18:30 | EKG REPORT ---
SEVERITY:- BORDERLINE ECG - SINUS RHYTHM BORDERLINE PROLONGED QT INTERVAL : Confirmed by: Brody Christianson MD 14-Dec-2018 18:29:53
[2018-12-14] MEDS ORDERED: MORPHINE SULFATE 10 MG/ML INJ IV ONE (18:56)
[2018-12-14] MEDS ORDERED: PREDNISONE 20 MG TABLET PO ONE (20:20)
== END 2018-12-14 20:39 | disposition home or self-care (01) ==
LOC: ER 15:21
DX: J45.21 Mild intermittent asthma with (acute) exacerbation (principal); I10 Essential (primary) hypertension; R07.9 Chest pain, unspecified; R05 Cough; R09.81 Nasal congestion; J45.909 Unspecified asthma, uncomplicated; F17.200 Nicotine dependence, unspecified, uncomplicated
CPT/HCPCS: 93005; 94640 ×2; 99284; 96374; 96375; 36415; 83690; 85025; 81025; 80053; 81001; 84484; 71046; 93010; S0119; J1885; J2270; J7512; J7620

== ENCOUNTER → 2019-08-01 | Outpatient (CLI) | payer OTHER ==
--- NOTE | 2019-08-01 13:03 | ER RDC ASSESSMENT REPORT ---
Intake - In the Last 14 days Have you traveled outside [place]?: No Have you been in close contact with someone CONFIRMED: No Worked in Healthcare?: No - Symptoms Subjective Fever([place] feverish): Yes Chills: Yes Muscule Aches: No Runny Nose: Yes Sore Throat: No Cough (New or worsening chronic cough): Yes Shortness of breath: No Nausea or Vomiting: Yes --How many day(s)?: from coughing Headache: Yes Abdominal Pain: Yes --How many day(s)?: from vomiting Diarrhea(3 or more loose stools in last 24 hours): No - Do you have any of the following Chronic lung disease: Asthma or emphysema or COPD: Yes Chronic Lung Disease Comment: COPD asthma emphysema pneumonia Diabetes: No High Blood Pressure: No Cardiovascular Disease: No Chronic Kidney Disease: No Chronic Liver Disease: Yes Chronic blood disorder like Sickle Cell Disease: No Weak immune system due to disease or medication: No Neurologic condition that limits movement: No Developmental delay - Moderate to Severe: No Recent (within past 2 weeks) or current : No Morbid Obesity (>100 pounds over ideal weight): Yes - Objective Temperature: 98.9 F Pulse Rate: 97 Blood Pressure: 117/72 O2 Sat by Pulse Oximetry: 95 Objective: Given above, testing performed: If Testing Performed: Test Specimen Type Sent to Disposition: Home; Selfcare General - General Chief Complaint: Flu Symptoms Stated Complaint: Cough congestion fever sore throat Time Seen by Provider: 08/01/19 13:18 Mode of Arrival: Ambulatory Information source: Patient Notes: 44-year-old female presents to the [facility] for cough congestion fever nausea and vomiting from coughing abdominal pain from the coughing. She states she was tested for flu positive on July 05, 2019. - HPI Onset: Other - Several weeks Onset/Duration: Gradual, Persistent Quality of pain: Achy Severity: Moderate Pain Level: 2 Associated symptoms: Chills, Productive cough, Diarrhea, Fever, Vomiting, Sinus pain/drainage, Shortness of breath Exacerbated by: Coughing Relieved by: Denies Similar symptoms previously: Yes Recently seen / treated by doctor: Yes - Related Data Allergies/Adverse Reactions: Sulfa (Sulfonamide Antibiotics) Allergy (Unknown, Verified 12/14/18 15:22) hydromorphone HCl [From Dilaudid] Allergy (Verified 12/14/18 15:22) Hallucinations Past Medical History - General Information source: Patient - Social History Smoking Status: Current Every Day Smoker Cigarette use (# per day): Yes - Depending on the stress level Smoking Education Provided: Yes - 4 minutes Lives with: Family Family History: Reviewed & Not Pertinent Patient has suicidal ideation: No Patient has homicidal ideation: No - Past Medical History Cardiac Medical History: Reports: Hx Hypertension Pulmonary Medical History: Reports: Hx Asthma, Hx Bronchitis, Hx COPD, Hx Pneumonia EENT Medical History: Reports: None Neurological Medical History: Reports: Hx Seizures - one time 2003, NO CURRENT MEDS Endocrine Medical History: Reports: None Renal/ Medical History: Reports: None Malignancy Medical History: Reports: None GI Medical History: Reports: Hx Gastroesophageal Reflux Disease Musculoskeletal Medical History: Reports Hx Arthritis, Reports Hx Fibromyalgia Skin Medical History: Reports Hx MRSA, Reports Hx Psoriasis Psychiatric Medical History: Reports: Hx Anxiety, Hx Bipolar Disorder, Hx Depression, Hx Post Traumatic Stress Disorder Traumatic Medical History: Reports: None Infectious Medical History: Reports: None Past Surgical History: Reports: Hx Abdominal Surgery - hernia repair, endoscopy, Hx Appendectomy, Hx Section - 2, Hx Cholecystectomy, Hx Gastric Bypass Surgery, Hx Tonsillectomy, Hx Tubal Ligation Physical Exam - Notes Notes: PHYSICAL EXAMINATION: GENERAL: Well-appearing, well-nourished and in no acute distress. HEAD: Atraumatic, normocephalic. EYES: Pupils equal round extraocular movements intact, conjunctiva are normal. ENT: Nares patent runny nose with purulent nasal drainage swelling to the nasal turbinates, postnasal drip NECK: Normal range of motion LUNGS: No respiratory distress lungs clear respirations regular nonlabored no shortness of breath noted Musculoskeletal: Normal range of motion NEUROLOGICAL: Normal speech, normal gait. PSYCH: Normal mood, normal affect. SKIN: Warm, Dry, normal turgor, no rashes or lesions noted. Diagnostic Results Laboratory Results: Strep and influenza a and B are negative. covid 19 will be run. Patient Education/Counseling Counseling/Education: Patient was provided with discharge information including: As a person under investigation for Covid 19, the [facility], division of public health advises you to adhere to the following guidance until your test results are reported to you. If your test result is positive, you will receive additional information from your provider and your local health department at that time. Remain at home until you are cleared by the health provider or public health authorities. Keep a log of visitors to your home, notify any visitors to your home of your isolation status. If you plan to move to a new address or leave the county, notify the local health department in your County. Call your doctor or seek care if you have an urgent medical need. Before seeking medical care, call ahead to get instructions from the provider before arriving at the medical office clinic or hospital. Notify them that you are being tested for the virus that causes Covid 19 so that arrangements can be made, as necessary, to prevent transmission to others in the healthcare setting. Next, notify the local health department in your county. If a medical emergency arises and you need to call 911, inform the first responders that you are being tested for the virus that causes Covid 19. Next, notify the local health department in your county. RDC Discharge - Discharge Clinical Impression: Viral respiratory illness, covid 19 pending Condition: Stable Disposition: Home; Selfcare
[2019-08-01 13:38] VITALS: BP 117/72
[2019-08-01 14:10] LABS: A TYPE INFLUENZA AG NEGATIVE (NEGATIVE); B INFLUENZA AG NEGATIVE (NEGATIVE)
== END ==
LOC: RDC 12:47
PROVIDERS: ATTEND Nurse Practitioner Family
DX: Z20.828 Contact with and (suspected) exposure to other viral communicable diseases (principal)
CPT/HCPCS: 87070; 87635; 87804; 87880